=== PATIENT | male | born 1950 | race Caucasian/White ===

== ENCOUNTER → 2017-06-08 09:10 | Outpatient (CLI) | payer MEDICARE, OTHER, SELFPAY ==
[2017-06-08 10:54] LABS: Microalbumin,Random Urine 8.3 mg/L (NO RANGE EST.); Microalbumin:Creatinine Ratio 5.9 mg/g CRE (<30 mg/g CRE)
[2017-06-08 11:03] LABS: Anion Gap 5 (5-15); BUN 20 mg/dL (7-18); BUN/Creat Ratio 14.6 RATIO (10-20); Calcium,Total 8.9 mg/dL (8.5-10.1); Chloride 108 mmol/L (98-107); Cholesterol 181 mg/dL (200); Creatinine, Serum 1.37 mg/dL (0.70-1.30); EST Glomerular Filtration Rate 55 mL/min (>60); Est Glom Filt Rate - Afr Amer 67 mL/min (>60); Glucose 100 mg/dL (74-106); High Density Lipoprotein 51 mg/dL; PSA,Total- Diagnostic 2.48 ng/mL (0.0-4.0); Potassium 5.2 mmol/L (3.5-5.1); Sodium Level 143 mmol/L (136-145); Triglycerides 104 mg/dL; Very Low Density Lipoprotein 21 mg/dL (5-40)
[2017-06-08 11:33] LABS: Vitamin D,25 Hydroxy 35.7 ng/mL (29.95-100.01)
== END ==
PROVIDERS: Family Provider Family Medicine; PCP Family Medicine; Visit Provider Family Medicine
DX: I10 Essential (primary) hypertension (principal); E55.9 Vitamin D deficiency, unspecified; N39.43 Post-void dribbling; R79.89 Other specified abnormal findings of blood chemistry
CPT/HCPCS: 36415; 80048; 80061; 82043; 82306; 82570; 84153

== ENCOUNTER → 2017-09-16 08:07 | Outpatient (CLI) | payer MEDICARE, OTHER, SELFPAY ==
[2017-09-16 10:40] LABS: Anion Gap 7 (5-15); BUN 21 mg/dL (7-18); BUN/Creat Ratio 17.2 RATIO (10-20); Calcium,Total 8.8 mg/dL (8.5-10.1); Chloride 108 mmol/L (98-107); Creatinine, Serum 1.22 mg/dL (0.70-1.30); EST Glomerular Filtration Rate 63 mL/min (>60); Est Glom Filt Rate - Afr Amer 76 mL/min (>60); Glucose 93 mg/dL (74-106); Sodium Level 143 mmol/L (136-145)
== END ==
PROVIDERS: Family Provider Family Medicine; PCP Family Medicine; Visit Provider Family Medicine
DX: I10 Essential (primary) hypertension (principal)
CPT/HCPCS: 36415; 80048

== ENCOUNTER → 2018-05-28 10:57 | Outpatient (CLI) | payer MEDICARE, OTHER, SELFPAY ==
--- NOTE | 2018-05-28 11:18 | EKG12_ITS ---
Test Reason : PREOP Blood Pressure : / mmHG Vent. Rate : 057 BPM Atrial Rate : 057 BPM P-R Int : 144 ms QRS Dur : 090 ms QT Int : 400 ms P-R-T Axes : 056 007 -01 degrees QTc Int : 389 ms Sinus bradycardia Nonspecific T wave abnormality Abnormal ECG Confirmed by JUAN WHITE, ANNA ([id number]), editorial project manager SUNIL OATES ([id number]) on 05/31/2018 2:09:05 PM Referred By: Don Amin Confirmed By:ANNA MARTINEZ MD
[2018-05-28 11:43] LABS: Hematocrit 46.1 % (40-54); Hemoglobin 15.2 g/dl (13.0-16.5); Mean Corpuscular Hgb 28.7 pg (27.0-32.0); Mean Platelet Vol. 10.5 fl (6.2-12.0); Platelet Count 282 K/mm3 (150-450); RBC Distribution Width CV 13.8 % (11.6-14.6); White Blood Count 6.5 K/mm3 (4.4-11.0)
[2018-05-28 11:57] LABS: Scan Indicated on CBC? Y/N NO
[2018-05-28 12:14] LABS: Anion Gap 4 (5-15); BUN 22 mg/dL (7-18); BUN/Creat Ratio 15.2 RATIO (10-20); Chloride 108 mmol/L (98-107); Creatinine, Serum 1.45 mg/dL (0.70-1.30); EST Glomerular Filtration Rate 51 mL/min (>60); Est Glom Filt Rate - Afr Amer 62 mL/min (>60); Glucose 91 mg/dL (74-106); Potassium 3.8 mmol/L (3.5-5.1); Sodium Level 144 mmol/L (136-145)
== END ==
PROVIDERS: Family Provider Family Medicine; PCP Family Medicine; Referring Provider Physician Assistant Surgical; Visit Provider Physician Assistant Surgical
DX: Z01.818 Encounter for other preprocedural examination (principal); Z01.810 Encounter for preprocedural cardiovascular examination
CPT/HCPCS: 36415; 80048; 85027; 93005

== ENCOUNTER → 2020-07-17 08:00 | Outpatient (CLI) | payer MEDICARE, OTHER, SELFPAY ==
[2020-07-17 10:28] LABS: Absolute Lymphocyte Count 1.16 X10^3/uL (0.83-4.51); Absolute Neutrophil Count 3.3 X10^3/uL (2.0-7.7); Basophil# 0.04 X10^3/uL; Basophil% 0.8 % (0-1); Eosinophil# 0.12 X10^3/uL; Eosinophils% 2.3 % (0-5); Hematocrit 44.9 % (40-54); Hemoglobin 14.5 g/dL (13.0-16.5); Lymphocyte # 1.16 X10^3/ul (0.83-4.51); Lymphocyte % 21.8 % (19-41); Mean Corp Hgb Conc 32.3 g/dL (32-36); Mean Corpuscular Hgb 28.4 pg (27.0-32.0); Mean Corpuscular Volume 87.9 fL (80-94); Mean Platelet Vol. 10.1 fl (6.2-12.0); Monocyte# 0.66 X10^3/uL; Monocyte% 12.4 % (0-10); Neutrophil # 3.32 X10^3/uL (2.7-7.7); Neutrophil % 62.3 % (47-70); Platelet Count 281 K/mm3 (150-450); RBC Distribution Width CV 14.5 % (11.6-14.6); Red Blood Count 5.11 M/mm3 (4.6-6.2); White Blood Count 5.3 K/mm3 (4.4-11.0)
[2020-07-17 10:29] LABS: NRBC Flagged by Analyzer 0 % (0-5)
[2020-07-17 10:37] LABS: Microalbumin:Creatinine Ratio 6.2 mg/g CRE (<30 mg/g CRE)
[2020-07-17 11:01] LABS: ALB/GLOB Ratio 1.3 RATIO (0.9-2.4); AST(SGOT) 16 U/L (15-37); Alanine Aminotransfer ALT/SGPT 30 U/L (16-61); Albumin, Serum 3.7 g/dL (3.2-5.0); Alkaline Phosphatase 68 U/L (45-117); Anion Gap 5 (5-15); BUN 25 mg/dL (7-18); BUN/Creat Ratio 19.4 RATIO (10-20); Calcium,Total 8.5 mg/dL (8.5-10.1); Chloride 110 mmol/L (98-107); Creatinine, Serum 1.29 mg/dL (0.70-1.30); EST Glomerular Filtration Rate 58 mL/min (>60); Est Glom Filt Rate - Afr Amer 71 mL/min (>60); Globulin 2.9 g/dL (2.2-4.2); Glucose 90 mg/dL (74-106); Potassium 3.7 mmol/L (3.5-5.1); Protein, Total 6.6 g/dL (6.4-8.2); Sodium Level 139 mmol/L (136-145)
== END ==
PROVIDERS: PCP Family Medicine; Referring Provider Family Medicine; Visit Provider Family Medicine
DX: I10 Essential (primary) hypertension (principal); M19.90 Unspecified osteoarthritis, unspecified site
CPT/HCPCS: 36415; 80053; 82043; 82570; 85025

== ENCOUNTER → 2021-01-15 09:12 | Outpatient (CLI) | payer MEDICARE, OTHER, SELFPAY ==
[2021-01-15 10:14] LABS: Albumin, Serum 3.7 g/dL (3.2-5.0); BUN 17 mg/dL (7-18); BUN/Creat Ratio 12.9 RATIO (10-20); Calcium,Total 9.2 mg/dL (8.5-10.1); Chloride 107 mmol/L (98-107); Cholesterol 153 mg/dL (200); Creatinine, Serum 1.32 mg/dL (0.70-1.30); EST Glomerular Filtration Rate 57 mL/min (>60); Est Glom Filt Rate - Afr Amer 69 mL/min (>60); Glucose 103 mg/dL (74-106); High Density Lipoprotein 68 mg/dL; Phosphorus 2.6 mg/dL (2.5-4.9); Potassium 4.3 mmol/L (3.5-5.1); Sodium Level 142 mmol/L (136-145); Triglycerides 104 mg/dL; Very Low Density Lipoprotein 21 mg/dL (5-40)
== END ==
PROVIDERS: PCP Family Medicine; Referring Provider Family Medicine; Visit Provider Family Medicine
DX: I12.9 Hypertensive chronic kidney disease with stage 1 through stage 4 chronic kidney disease, or unspecified chronic kidney disease (principal); N18.2 Chronic kidney disease, stage 2 (mild)
CPT/HCPCS: 36415; 80061; 80069

== ENCOUNTER → 2021-08-09 | Outpatient (CLI) | payer MEDICARE, OTHER, SELFPAY ==
[2021-08-09 17:50] LABS: Albumin, Serum 3.9 g/dL (3.2-5.0); BUN 24 mg/dL (7-18); BUN/Creat Ratio 21.2 RATIO (10-20); Calcium,Total 9.4 mg/dL (8.5-10.1); Chloride 107 mmol/L (98-107); Creatinine, Serum 1.13 mg/dL (0.70-1.30); EST Glomerular Filtration Rate 68 mL/min (>60); Est Glom Filt Rate - Afr Amer 82 mL/min (>60); Glucose 92 mg/dL (74-106); Magnesium 2.4 mg/dL (1.6-2.6); Phosphorus 3.4 mg/dL (2.5-4.9); Potassium 3.9 mmol/L (3.5-5.1); Sodium Level 140 mmol/L (136-145)
[2021-08-12 08:27] LABS: PTHIN 41.5 pg/mL (18.4-80.1)
== END | disposition home or self-care (01) ==
LOC: MFPLAB 14:57
PROVIDERS: PCP Family Medicine; Referring Provider Family Medicine; Visit Provider Family Medicine
DX: N18.2 Chronic kidney disease, stage 2 (mild) (principal)
CPT/HCPCS: 36415; 80069; 83735; 83970

== ENCOUNTER → 2021-09-10 | Outpatient (CLI) | payer MEDICARE, OTHER, SELFPAY ==
[2021-09-10 15:17] LABS: Absolute Lymphocyte Count 1.54 X10^3/uL (0.83-4.51); Absolute Neutrophil Count 7.1 X10^3/uL (2.0-7.7); Basophil# 0.04 X10^3/uL; Basophil% 0.4 % (0-1); Eosinophil# 0.04 X10^3/uL; Eosinophils% 0.4 % (0-5); Hematocrit 44.3 % (40-54); Hemoglobin 14.4 g/dL (13.0-16.5); Lymphocyte # 1.54 X10^3/ul (0.83-4.51); Lymphocyte % 15.7 % (19-41); Mean Corp Hgb Conc 32.5 g/dL (32-36); Mean Corpuscular Hgb 28.5 pg (27.0-32.0); Mean Corpuscular Volume 87.5 fL (80-94); Mean Platelet Vol. 10.9 fl (6.2-12.0); Monocyte# 1.01 X10^3/uL; Monocyte% 10.3 % (0-10); NRBC Flagged by Analyzer 0 % (0-5); Neutrophil # 7.11 X10^3/uL (2.7-7.7); Neutrophil % 72.8 % (47-70); Platelet Count 274 K/mm3 (150-450); RBC Distribution Width CV 14.4 % (11.6-14.6); RBC Distribution Width SD 46.2 fl (35.1-43.9); Red Blood Count 5.06 M/mm3 (4.6-6.2); White Blood Count 9.8 K/mm3 (4.4-11.0)
[2021-09-10 16:06] LABS: ALB/GLOB Ratio 1.2 RATIO (0.9-2.4); AST(SGOT) 13 U/L (15-37); Alanine Aminotransfer ALT/SGPT 23 U/L (16-61); Albumin, Serum 3.8 g/dL (3.2-5.0); Alkaline Phosphatase 63 U/L (45-117); Anion Gap 5 (5-15); BUN 19 mg/dL (7-18); BUN/Creat Ratio 15.1 RATIO (10-20); Calcium,Total 9.1 mg/dL (8.5-10.1); Chloride 107 mmol/L (98-107); Creatinine, Serum 1.26 mg/dL (0.70-1.30); EST Glomerular Filtration Rate 60 mL/min (>60); Est Glom Filt Rate - Afr Amer 72 mL/min (>60); Globulin 3.3 g/dL (2.2-4.2); Glucose 93 mg/dL (74-106); Lipase 103 U/L (73-393); Potassium 4.4 mmol/L (3.5-5.1); Protein, Total 7.1 g/dL (6.4-8.2); Sodium Level 138 mmol/L (136-145)
== END | disposition home or self-care (01) ==
LOC: MFPLAB 12:03
PROVIDERS: PCP Family Medicine; Referring Provider Family Medicine; Visit Provider Family Medicine
DX: K21.9 Gastro-esophageal reflux disease without esophagitis (principal)
CPT/HCPCS: 36415; 80053; 83690; 85025; 86140

== ENCOUNTER → 2022-05-26 | Outpatient (CLI) | payer MEDICARE, OTHER, SELFPAY ==
[2022-05-26 13:09] LABS: ALB/GLOB Ratio 1.1 RATIO (0.9-2.4); AST(SGOT) 16 U/L (15-37); Alanine Aminotransfer ALT/SGPT 26 U/L (16-61); Albumin, Serum 3.9 g/dL (3.2-5.0); Alkaline Phosphatase 70 U/L (45-117); Anion Gap 4 (5-15); BUN 22 mg/dL (7-18); BUN/Creat Ratio 20.4 RATIO (10-20); Calcium,Total 8.9 mg/dL (8.5-10.1); Chloride 108 mmol/L (98-107); Creatinine, Serum 1.08 mg/dL (0.70-1.30); EST Glomerular Filtration Rate 71 mL/min (>60); Est Glom Filt Rate - Afr Amer 86 mL/min (>60); Globulin 3.4 g/dL (2.2-4.2); Glucose 86 mg/dL (74-106); Magnesium 2.2 mg/dL (1.6-2.6); PSA,Total - Annual Screen 5.56 ng/mL (0.00-4.00); Phosphorus 2.3 mg/dL (2.5-4.9); Protein, Total 7.3 g/dL (6.4-8.2); Sodium Level 139 mmol/L (136-145)
[2022-05-26 13:10] LABS: Microalbumin,Random Urine 11.6 mg/L (NO RANGE EST.); Microalbumin:Creatinine Ratio 9.7 mg/g CRE (<30 mg/g CRE)
== END | disposition home or self-care (01) ==
LOC: MFPLAB 10:51
PROVIDERS: PCP Family Medicine; Visit Provider Family Medicine
DX: I12.9 Hypertensive chronic kidney disease with stage 1 through stage 4 chronic kidney disease, or unspecified chronic kidney disease (principal); N18.2 Chronic kidney disease, stage 2 (mild); Z12.5 Encounter for screening for malignant neoplasm of prostate
CPT/HCPCS: 80053; 82043; 82570; 83735; 84100; 84153; G0103

== ENCOUNTER → 2022-06-03 | Outpatient (CLI) | payer MEDICARE, OTHER, SELFPAY ==
[2022-06-03 16:29] LABS: Absolute Lymphocyte Count 1.74 X10^3/uL (0.83-4.51); Absolute Neutrophil Count 5.9 X10^3/uL (2.0-7.7); Basophil# 0.07 X10^3/uL; Basophil% 0.8 % (0-1); Eosinophil# 0.08 X10^3/uL; Eosinophils% 0.9 % (0-5); Hematocrit 43.5 % (40-54); Hemoglobin 14.2 g/dL (13.0-16.5); Lymphocyte # 1.74 X10^3/ul (0.83-4.51); Lymphocyte % 20.1 % (19-41); Mean Corp Hgb Conc 32.6 g/dL (32-36); Mean Corpuscular Hgb 28.7 pg (27.0-32.0); Mean Corpuscular Volume 87.9 fL (80-94); Mean Platelet Vol. 9.9 fl (6.2-12.0); Monocyte# 0.86 X10^3/uL; Monocyte% 9.9 % (0-10); NRBC Flagged by Analyzer 0 % (0-5); Neutrophil % 68.1 % (47-70); Platelet Count 310 K/mm3 (150-450); RBC Distribution Width CV 13.9 % (11.6-14.6); RBC Distribution Width SD 44.9 fl (35.1-43.9); Red Blood Count 4.95 M/mm3 (4.6-6.2); White Blood Count 8.7 K/mm3 (4.4-11.0)
== END | disposition home or self-care (01) ==
LOC: LAB 15:55
PROVIDERS: PCP Family Medicine; Visit Provider Physician Assistant Surgical
DX: Z01.812 Encounter for preprocedural laboratory examination (principal); K21.9 Gastro-esophageal reflux disease without esophagitis
CPT/HCPCS: 36415; 85025

== ENCOUNTER → 2022-06-23 | Outpatient (CLI) | payer MEDICARE, OTHER, SELFPAY ==
[2022-06-23 11:04] LABS: Hematocrit 39.1 % (40-54); Hemoglobin 12.3 g/dL (13.0-16.5); Mean Corp Hgb Conc 31.5 g/dL (32-36); Mean Corpuscular Hgb 27.9 pg (27.0-32.0); Mean Corpuscular Volume 88.7 fL (80-94); Mean Platelet Vol. 9.8 fl (6.2-12.0); Platelet Count 381 K/mm3 (150-450); RBC Distribution Width SD 45.5 fl (35.1-43.9); Red Blood Count 4.41 M/mm3 (4.6-6.2); White Blood Count 9.3 K/mm3 (4.4-11.0)
== END | disposition home or self-care (01) ==
LOC: LAB 10:06
PROVIDERS: PCP Family Medicine; Referring Provider Physician Assistant Surgical; Visit Provider Physician Assistant Surgical
DX: D72.829 Elevated white blood cell count, unspecified (principal); E89.89 Other postprocedural endocrine and metabolic complications and disorders
CPT/HCPCS: 36415; 85027

== ENCOUNTER → 2023-01-13 | Outpatient (CLI) | payer MEDICARE, OTHER, SELFPAY ==
[2023-01-13 16:03] LABS: PSA,Total- Diagnostic 1.79 ng/mL (0.0-4.0)
== END | disposition home or self-care (01) ==
LOC: LAB 13:14
PROVIDERS: PCP Family Medicine; Referring Provider Urology; Visit Provider Urology
DX: R97.20 Elevated prostate specific antigen [PSA] (principal)
CPT/HCPCS: 36415; 84153

== ENCOUNTER → 2023-01-15 | Outpatient (CLI) | payer MEDICARE, OTHER, SELFPAY ==
[2023-01-15 17:43] LABS: Absolute Lymphocyte Count 1.49 X10^3/uL (0.83-4.51); Absolute Neutrophil Count 4.8 X10^3/uL (2.0-7.7); Basophil# 0.06 X10^3/uL; Basophil% 0.8 % (0-1); Eosinophil# 0.06 X10^3/uL; Eosinophils% 0.8 % (0-5); Hemoglobin 13.5 g/dL (13.0-16.5); Lymphocyte # 1.49 X10^3/ul (0.83-4.51); Mean Corp Hgb Conc 32.1 g/dL (32-36); Mean Corpuscular Hgb 28.5 pg (27.0-32.0); Mean Corpuscular Volume 88.8 fL (80-94); Mean Platelet Vol. 10.2 fl (6.2-12.0); Monocyte# 0.69 X10^3/uL; Monocyte% 9.7 % (0-10); NRBC Flagged by Analyzer 0 % (0-5); Neutrophil # 4.76 X10^3/uL (2.7-7.7); Neutrophil % 67.3 % (47-70); Platelet Count 279 K/mm3 (150-450); RBC Distribution Width CV 14.9 % (11.6-14.6); RBC Distribution Width SD 48.7 fl (35.1-43.9); Red Blood Count 4.73 M/mm3 (4.6-6.2); White Blood Count 7.1 K/mm3 (4.4-11.0)
[2023-01-15 18:24] LABS: Vitamin D,25 Hydroxy 51.6 ng/mL
[2023-01-15 18:25] LABS: ALB/GLOB Ratio 1.2 RATIO (0.9-2.4); AST(SGOT) 13 U/L (15-37); Alanine Aminotransfer ALT/SGPT 23 U/L (16-61); Albumin, Serum 3.5 g/dL (3.2-5.0); Alkaline Phosphatase 73 U/L (45-117); Anion Gap 7 (5-15); BUN 15 mg/dL (7-18); BUN/Creat Ratio 13.4 RATIO (10-20); Calcium,Total 8.9 mg/dL (8.5-10.1); Chloride 109 mmol/L (98-107); Creatinine, Serum 1.12 mg/dL (0.70-1.30); EST Glomerular Filtration Rate 68 mL/min (>60); Est Glom Filt Rate - Afr Amer 83 mL/min (>60); Globulin 2.9 g/dL (2.2-4.2); Glucose 114 mg/dL (74-106); PSA,Total- Diagnostic 1.69 ng/mL (0.0-4.0); Potassium 3.5 mmol/L (3.5-5.1); Protein, Total 6.4 g/dL (6.4-8.2); Sodium Level 140 mmol/L (136-145)
== END | disposition home or self-care (01) ==
LOC: MFPLAB 15:27
PROVIDERS: PCP Family Medicine; Visit Provider Family Medicine
DX: I12.9 Hypertensive chronic kidney disease with stage 1 through stage 4 chronic kidney disease, or unspecified chronic kidney disease (principal); N18.2 Chronic kidney disease, stage 2 (mild); E55.9 Vitamin D deficiency, unspecified; D72.829 Elevated white blood cell count, unspecified; N40.0 Benign prostatic hyperplasia without lower urinary tract symptoms
CPT/HCPCS: 36415; 80053; 82306; 84153; 85025

== ENCOUNTER → 2023-08-31 | Outpatient (CLI) | payer MEDICARE, OTHER, SELFPAY ==
[2023-08-31 12:19] LABS: Absolute Neutrophil Count 3.2 X10^3/uL (2.0-7.7); Basophil# 0.04 X10^3/uL; Basophil% 0.7 % (0-1); Eosinophil# 0.11 X10^3/uL; Eosinophils% 1.9 % (0-5); Hematocrit 43.6 % (40-54); Hemoglobin 13.8 g/dL (13.0-16.5); Lymphocyte % 24.1 % (19-41); Mean Corp Hgb Conc 31.7 g/dL (32-36); Mean Corpuscular Hgb 27.5 pg (27.0-32.0); Mean Corpuscular Volume 86.9 fL (80-94); Mean Platelet Vol. 10.5 fl (6.2-12.0); Monocyte% 18.9 % (0-10); NRBC Flagged by Analyzer 0 % (0-5); Neutrophil # 3.15 X10^3/uL (2.7-7.7); Neutrophil % 54.1 % (47-70); Platelet Count 251 K/mm3 (150-450); RBC Distribution Width CV 14.6 % (11.6-14.6); RBC Distribution Width SD 47.4 fl (35.1-43.9); Red Blood Count 5.02 M/mm3 (4.6-6.2); White Blood Count 5.8 K/mm3 (4.4-11.0)
[2023-08-31 12:53] LABS: Microalbumin,Random Urine 21.1 mg/L (NO RANGE EST.); Microalbumin:Creatinine Ratio 7.2 mg/g CRE (<30 mg/g CRE)
[2023-08-31 12:54] LABS: ALB/GLOB Ratio 1.2 RATIO (0.9-2.4); AST(SGOT) 23 U/L (15-37); Alanine Aminotransfer ALT/SGPT 25 U/L (16-61); Albumin, Serum 3.6 g/dL (3.2-5.0); Alkaline Phosphatase 68 U/L (45-117); Anion Gap 9 (5-15); BUN 20 mg/dL (7-18); BUN/Creat Ratio 17.5 RATIO (10-20); Calcium,Total 8.6 mg/dL (8.5-10.1); Chloride 109 mmol/L (98-107); Cholesterol 139 mg/dL (200); Creatinine, Serum 1.14 mg/dL (0.70-1.30); EST Glomerular Filtration Rate 67 mL/min (>60); Est Glom Filt Rate - Afr Amer 81 mL/min (>60); Globulin 3.1 g/dL (2.2-4.2); Glucose 94 mg/dL (74-106); High Density Lipoprotein 61 mg/dL; PSA,Total - Annual Screen 2.11 ng/mL (0.00-4.00); Protein, Total 6.7 g/dL (6.4-8.2); Sodium Level 140 mmol/L (136-145); Triglycerides 131 mg/dL; Very Low Density Lipoprotein 26 mg/dL (5-40)
[2023-08-31 17:02] LABS: Vitamin D,25 Hydroxy 32.5 ng/mL
== END | disposition home or self-care (01) ==
LOC: MFPLAB 10:34
PROVIDERS: PCP Family Medicine; Visit Provider Family Medicine
DX: I12.9 Hypertensive chronic kidney disease with stage 1 through stage 4 chronic kidney disease, or unspecified chronic kidney disease (principal); N18.2 Chronic kidney disease, stage 2 (mild); Z12.11 Encounter for screening for malignant neoplasm of colon; N40.0 Benign prostatic hyperplasia without lower urinary tract symptoms; E55.9 Vitamin D deficiency, unspecified; N18.9 Chronic kidney disease, unspecified; Z12.5 Encounter for screening for malignant neoplasm of prostate
CPT/HCPCS: 36415; 80053; 80061; 82043; 82306; 82570; 84153; 85025; G0103

== ENCOUNTER → 2024-01-05 | Outpatient (CLI) | payer MEDICARE, OTHER, SELFPAY ==
--- OUTSIDE RECORDS SUMMARY | 2024-01-05 08:31 | XMS RPT_ITS | CCD ---
Author Organization [facility] Care Team Providers Care Transport Specialist Name Role Phone BRIELLE WHITE, SOURAV Gautam Primary Care Physician HAJA WHITE, DR ERVIN Gautam Attending Ruth Hollingsworth MD, SOURAV Gautam Primary Care Anthony SMYTH MD, DR ERVIN Gautam Attending Ruth Hollingsworth MD, SOURAV Gautam Primary Care Unavailable HAJA WHITE, DR ERVIN Gautam Attending Ruth Hollingsworth MD, SOURAV Gautam Primary Care Anthony SMYTH MD, DR ERVIN Gautam Admitting Unavailab gil [employer], ZEE Rizzo Consulting Aisha SMYTH MD, DR ERVIN Gautam Referring Unavailab Medications Current Medications Medication Drug Class(es) Dates Sig (Normalized) Sig (Original) acetaminophen 500 mg oral capsule (1 source) Start: 06-18-2022 End: 07-02-2022 take 1 capsule by mouth once daily acetaminophen 500 mg oral capsule Dose : 1,000 mg = 2 cap(s), Oral, TID, PRN PRN for pain, not to exceed 3000 mg/day, # 100 cap(s), 0 Refill(s), 07/02/22 7:39:00 EDT, Pharmacy: [facility] #[id number], 170.2, cm, 06/17/22 14:14:00 EDT, Height Start Date: 06/18/22 Stop Date: 07/02/22 Status: Ordered amLODIPine 5 mg oral tablet (3 sources) Dihydropyridine Calcium Channel Daryl Start: 06-02-2022 amLODIPine 5 mg oral tablet Dose : 5 mg = 1 tab(s), Oral, qHS, # 90 tab(s), 0 Refill(s) Start Date: 06/02/22 Status: Ordered aspirin 81 mg oral tablet (3 sources) Platelet Aggregation Inhibitor, Nonsteroidal Anti-inflammatory Drug Start: 06-18-2022 take 1 tablet by mouth twice daily at mealtime aspirin Dose : 81 mg = 1 tab(s), Oral, BIDM, Take 81 mg aspirin twice daily with food for 4 weeks postoperatively for DVT prophylaxis., 0 Refill(s) Start Date: 06/18/22 Status: Ordered Start: 06-02-2022 aspirin 81 mg oral delayed release tablet Dose : 81 mg = 1 tab(s), Oral, Daily, 0 Refill(s) Start Date: 06/02/22 Status: Ordered bimatoprost 0.1 mg/ml ophthalmic solution (3 sources) Prostaglandin Analog Start: 06-02-2022 Lumigan 0.01% ophthalmic solution Dose = 1 drop(s), Eye, right, qPM, # 2.5 mL, 0 Refill(s) Start Date: 06/02/22 Status: Ordered Biotin (3 sources) Start: 06-02-2022 Biotin 5000 mcg oral capsule Dose : 5,000 mcg = 1 cap(s), Oral, Daily, 0 Refill(s) Start Date: 06/02/22 Status: Ordered docusate sodium 50 mg / sennosides, fpc 8.6 mg oral tablet (1 source) Start: 06-18-2022 End: 06-21-2022 take 1 tablet by mouth twice daily Senokot S 50 mg-8.6 mg oral tablet Dose = 2 tab(s), Oral, BID, Take until first bowel movement, then as needed, X 3 day(s), # 12 tab(s), 0 Refill(s), Pharmacy: [facility] #[id number], 170.2, cm, 06/17/22 14:14:00 EDT, Height Start Date: 06/18/22 Stop Date: 06/21/22 Status: Ordered doxycycline hyclate 20 mg oral tablet (3 sources) Tetracycline-class Drug Start: 06-02-2022 doxycycline 20 mg oral tablet Dose : 20 mg = 1 tab(s), Oral, q12h, # 180 tab(s), 0 Refill(s) Start Date: 06/02/22 Status: Ordered Elderberry preparation (3 sources) Start: 06-02-2022 take 1 capsule by mouth once daily elderberry 350 mg oral capsule 350 mg Dose = 1 cap(s), Oral, qDay, # 60 cap(s), 0 Refill(s) Start Date: 06/02/22 Status: Ordered famotidine 20 mg oral tablet (3 sources) Histamine-2 Receptor Antagonist Start: 06-02-2022 famotidine 20 mg oral tablet Dose : 20 mg = 1 tab(s), Oral, BID, # 60 tab(s), 0 Refill(s) Start Date: 06/02/22 Status: Ordered inulin 1500 mg chewable tablet (3 sources) Start: 06-02-2022 Fiber Choice 1.5 g oral tablet, chewable Dose : 1.5 gram(s) = 1 tab(s), Chewed, Daily, # 90 tab(s), 0 Refill(s) Start Date: 06/02/22 Status: Ordered lisinopril 20 mg oral tablet (3 sources) Angiotensin Converting Enzyme Inhibitor Start: 06-02-2022 lisinopril 20 mg oral tablet Dose : 20 mg = 1 tab(s), Oral, BID, 0 Refill(s) Start Date: 06/02/22 Status: Ordered magnesium oxide 400 mg oral tablet (3 sources) Start: 06-02-2022 magnesium oxide 400 mg oral tablet Dose : 400 mg = 1 tab(s), Oral, qDay, 0 Refill(s) Start Date: 06/02/22 Status: Ordered melatonin 3 mg oral tablet (3 sources) Start: 06-02-2022 Melatonin 3 mg oral tablet Dose : 3 mg = 1 tab(s), Oral, qHS, PRN for insomnia, # 90 tab(s), 0 Refill(s) Start Date: 06/02/22 Status: Ordered oxyCODONE hydrochloride 5 mg oral tablet (1 source) Opioid Agonist Start: 06-18-2022 End: 06-25-2022 take 1-2 tablets by mouth every four hours as needed for pain oxyCODONE 5 mg oral tablet ( IMMEDIATE release ) See Instructions, PRN PRN as needed for pain, 1-2 tab(s) Oral q4h, # 42 tab(s), 0 Refill(s), 06/25/22 7:40:00 EDT, Pharmacy: [facility] #[id number], Status post total right knee replacement, 170.2, cm, 06/17/22 14:14:00 EDT, Height, 80.5 Start Date: 06/18/22 Stop Date: 06/25/22 Status: Ordered pantoprazole 40 mg delayed release oral tablet (3 sources) Proton Pump Inhibitor Start: 06-02-2022 pantoprazole 40 mg oral enteric coated tablet Dose : 40 mg = 1 tab(s), Oral, BIDAC, 0 Refill(s) Start Date: 06/02/22 Status: Ordered rosuvastatin calcium 10 mg oral tablet (3 sources) HMG-CoA Reductase Inhibitor Start: 06-02-2022 rosuvastatin 10 mg oral tablet Dose : 10 mg = 1 tab(s), Oral, qDay, # 30 tab(s), 0 Refill(s) Start Date: 06/02/22 Status: Ordered tamsulosin hydrochloride 0.4 mg oral capsule (3 sources) alpha-Adrenergic Daryl Start: 06-02-2022 tamsulosin 0.4 mg oral capsule Dose : 0.4 mg = 1 cap(s), Oral, qDayPC, 0 Refill(s) Start Date: 06/02/22 Status: Ordered Vitamin D3 25 mcg (1000 intl units) oral tablet (3 sources) Start: 06-02-2022 Vitamin D3 25 mcg (1000 intl units) oral tablet Dose : 25 mcg = 1 tab(s), Oral, qDay, # 30 tab(s), 0 Refill(s) Start Date: 06/02/22 Status: Ordered vitamin e 180 mg oral capsule (3 sources) Start: 06-02-2022 vitamin E 180 mg oral capsule Dose : 180 mg = 1 cap(s), Oral, qDay, # 100 cap(s), 0 Refill(s) Start Date: 06/02/22 Status: Ordered zinc acetate 25 mg oral capsule (3 sources) Start: 06-02-2022 zinc (as acetate) 25 mg oral capsule Dose : 25 mg = 1 cap(s), Oral, TID, # 250 cap(s), 0 Refill(s) Start Date: 06/02/22 Status: Ordered Problems Problem Classification Problem Date Documented Date Episodic/Chronic Diseases of white blood cells (2 sources) Leukocytosis; Translations: [Elevated white blood cell count, unspecified] Onset: 06-18-2022 Chronic Esophageal disorders (1 source) Gastroesophageal reflux disease without esophagitis; Translations: [Gastro-esophageal reflux disease without esophagitis] Onset: 06-17-2022 Chronic Essential hypertension (1 source) Essential hypertension; Translations: [Essential (primary) hypertension] Onset: 06-17-2022 Chronic Osteoarthritis (1 source) Osteoarthritis; Translations: [Unspecified osteoarthritis, unspecified site] Onset: 06-17-2022 Chronic Other connective tissue disease (1 source) Artificial knee joint present; Translations: [Presence of right artificial knee joint] Onset: 06-18-2022 Chronic Results Test Name Value Interpretation Reference Range Facility .Auto Diffon 06-18-2022 Basophil, Absolute 0.0 10 3/mcL Normal 0.0-0.2 [facility] ([place]) Comment on above: Performed By: #### A KATLYN, MORPH, CBC, GFR, ADIFF, BMP #### [address] [address] Basophils/100 WBC (Bld) 0.1 % Normal 0.0-2.5 [facility] ([place]) Comment on above: Performed By: #### A KATLYN, MORPH, CBC, GFR, ADIFF, BMP #### [address] [address] Eosinophil, Absolute 0.0 10 3/mcL Normal 0.0-0.4 [facility] ([place]) Comment on above: Performed By: #### A KATLYN, MORPH, CBC, GFR, ADIFF, BMP #### [address] [address] Eosinophils/100 WBC (Bld) 0.0 % Normal 0.0-7.0 [facility] ([place]) Comment on above: Performed By: #### A KATLYN, MORPH, CBC, GFR, ADIFF, BMP #### [address] [address] Lymphocyte, Absolute 0.9 10 3/mcL Normal 0.8-3.9 [facility] ([place]) Comment on above: Performed By: #### A KATLYN, MORPH, CBC, GFR, ADIFF, BMP #### [address] [address] Lymphocytes/100 WBC (Bld) 4.1 % Low 10.0-50.0 [facility] ([place]) Comment on above: Performed By: #### A KATLYN, MORPH, CBC, GFR, ADIFF, BMP #### [address] [address] Monocyte, Absolute 1.5 10 3/mcL High 0.2-1.0 [facility] ([place]) Comment on above: Performed By: #### A KATLYN, MORPH, CBC, GFR, ADIFF, BMP #### [address] [address] Monocytes/100 WBC (Bld) 6.7 % Normal 1.7-13.0 [facility] ([place]) Comment on above: Performed By: #### A KATLYN, MORPH, CBC, GFR, ADIFF, BMP #### [address] [address] Neutrophils/100 WBC (Bld) 89.1 % High 37.0-80.0 [facility] ([place]) Comment on above: Performed By: #### A KATLYN, MORPH, CBC, GFR, ADIFF, BMP #### [address] [address] .GFRon 06-18-2022 GFR Non- 56 ml/min/1.73sqm Normal [facility] ([place]) Comment on above: Result Comment: GFR Population mean for , Non- Americans Ages 20-29 = 116 mL/min/1.73 sq.m. Ages 30-39 = 107 mL/min/1.73 sq.m. Ages 40-49 = 99 mL/min/1.73 sq.m. Ages 50-59 = 93 mL/min/1.73 sq.m. Ages 60-69 = 85 mL/min/1.73 sq.m. Ages 70+ = 75 mL/min/1.73 sq.m. Chronic Kidney Disease: Less than 60 mL/min/1.73 square meters End Stage Renal Disease: Less than 15 mL/min/1.73 square meters Performed By: #### A KATLYN, MORPH, CBC, GFR, ADIFF, BMP #### [address] [address] GFR 68 ml/min/1.73sqm Normal [facility] ([place]) Comment on above: Result Comment: GFR Population mean for , Non- Americans Ages 20-29 = 116 mL/min/1.73 sq.m. Ages 30-39 = 107 mL/min/1.73 sq.m. Ages 40-49 = 99 mL/min/1.73 sq.m. Ages 50-59 = 93 mL/min/1.73 sq.m. Ages 60-69 = 85 mL/min/1.73 sq.m. Ages 70+ = 75 mL/min/1.73 sq.m. Chronic Kidney Disease: Less than 60 mL/min/1.73 square meters End Stage Renal Disease: Less than 15 mL/min/1.73 square meters Performed By: #### A KATLYN, MORPH, CBC, GFR, ADIFF, BMP #### [address] [address] .Morphon 06-18-2022 Platelet Estimate Normal Normal [facility]) Comment on above: Performed By: #### A KATLYN, MORPH, CBC, GFR, ADIFF, BMP #### [address] [address] .NEUABSon 06-18-2022 Neutrophil, Absolute 19.7 10 3/mcL High 2.9-6.2 A [facility] ([place]) Comment on above: Performed By: #### A KATLYN, MORPH, CBC, GFR, ADIFF, BMP #### [address] [address] BMPon 06-18-2022 BUN/Creatinine Ratio 17 ratio Normal 7-27 [facility] ([place]) Comment on above: Performed By: #### A KATLYN, MORPH, CBC, GFR, ADIFF, BMP #### [address] [address] Calcium [Mass/Vol] 9.0 mg/dL Normal 8.4-10.2 [facility] ([place]) Comment on above: Performed By: #### A KATLYN, MORPH, CBC, GFR, ADIFF, BMP #### [address] [address] Chloride [Moles/Vol] 104 mmol/L Normal 98-107 [facility] ([place]) Comment on above: Performed By: #### A KATLYN, MORPH, CBC, GFR, ADIFF, BMP #### [address] [address] CO2 [Moles/Vol] 25 mmol/L Normal 23-31 [facility] ([place]) Comment on above: Performed By: #### A KATLYN, MORPH, CBC, GFR, ADIFF, BMP #### [address] [address] Creatinine [Mass/Vol] 1.26 mg/dL Normal 0.70-1.30 [facility] ([place]) Comment on above: Performed By: #### A KATLYN, MORPH, CBC, GFR, ADIFF, BMP #### [address] [address] Electrolyte Balance 11.0 mEq/L Normal 4.0-15.0 [facility] ([place]) Comment on above: Performed By: #### A KATLYN, MORPH, CBC, GFR, ADIFF, BMP #### [address] [address] Glucose [Mass/Vol] 136 mg/dL High 83-110 [facility] ([place]) Comment on above: Performed By: #### A KATLYN, MORPH, CBC, GFR, ADIFF, BMP #### [address] [address] Potassium [Moles/Vol] 4.7 mmol/L Normal 3.5-5.1 [facility] ([place]) Comment on above: Performed By: #### A KATLYN, MORPH, CBC, GFR, ADIFF, BMP #### [address] [address] Sodium [Moles/Vol] 140 mmol/L Normal 136-145 [facility] ([place]) Comment on above: Performed By: #### A KATLYN, MORPH, CBC, GFR, ADIFF, BMP #### [address] [address] Urea nitrogen [Mass/Vol] 22 mg/dL High 7-18 [facility] ([place]) Comment on above: Performed By: #### A KATLYN, MORPH, CBC, GFR, ADIFF, BMP #### [address] [address] CBCon 06-18-2022 Erythrocyte distribution width (RBC) [Ratio] 14.2 % Normal 11.5-14.5 [facility] ([place]) Comment on above: Performed By: #### A KATLYN, MORPH, CBC, GFR, ADIFF, BMP #### [address] [address] Hematocrit (Bld) [Volume fraction] 40.9 % Low 42.0-52.0 [facility] ([place]) Comment on above: Performed By: #### A KATLYN, MORPH, CBC, GFR, ADIFF, BMP #### [address] [address] Hgb 13.8 G/dL Low 14.0-18.0 [facility] ([place]) Comment on above: Performed By: #### A KATLYN, MORPH, CBC, GFR, ADIFF, BMP #### [address] [address] MCH (RBC) [Entitic mass] 28.3 pg Normal 27.0-31.2 [facility] ([place]) Comment on above: Performed By: #### A KATLYN, MORPH, CBC, GFR, ADIFF, BMP #### [address] [address] MCHC 33.8 G/dL Normal 31.8-35.4 [facility] ([place]) Comment on above: Performed By: #### A KATLYN, MORPH, CBC, GFR, ADIFF, BMP #### [address] [address] MCV (RBC) [Entitic vol] 83.7 fL Normal 80.0-94.0 [facility] ([place]) Comment on above: Performed By: #### A KATLYN, MORPH, CBC, GFR, ADIFF, BMP #### [address] [address] Platelet 314 10 3/mcL Normal 130-400 [facility] ([place]) Comment on above: Performed By: #### A KATLYN, MORPH, CBC, GFR, ADIFF, BMP #### [address] [address] Platelet mean volume (Bld) [Entitic vol] 8.2 fL Normal 7.4-10.4 [facility] ([place]) Comment on above: Performed By: #### A KATLYN, MORPH, CBC, GFR, ADIFF, BMP #### [address] [address] RBC 4.89 10 6/mcL Normal 4.04-6.13 [facility] ([place] Comment on above: Performed By: #### A KATLYN, MORPH, CBC, GFR, ADIFF, BMP #### [address] [address] WBC 22.1 10 3/mcL High 4.6-10.8 [facility] ([place] Comment on above: Performed By: #### A KATLYN, MORPH, CBC, GFR, ADIFF, BMP #### [address] [address] LABORATORYOrdered By: Tri Fitzgerald on 06-18-2022 Basophil, Absolute 0.0 103/mcL Invalid Interpretation Code 0.0 - 0.2 10^3/mcL AO Workflow SS Basophils/100 WBC (Bld) 0.1 % Invalid Interpretation Code 0.0 - 2.5 % AO Workflow SS Eosinophil, Absolute 0.0 103/mcL Invalid Interpretation Code 0.0 - 0.4 10^3/mcL AO Workflow SS Eosinophils/100 WBC (Bld) 0.0 % Invalid Interpretation Code 0.0 - 7.0 % AO Workflow SS Erythrocyte distribution width (RBC) [Ratio] 14.2 % Invalid Interpretation Code 11.5 - 14.5 % AO Workflow SS Hematocrit (Bld) [Volume fraction] 40.9 % Invalid Interpretation Code 42.0 - 52.0 % AO Workflow SS Hemoglobin (Bld) [Mass/Vol] 13.8 G/dL Invalid Interpretation Code 14.0 - 18.0 G/dL AO Workflow SS Lymphocyte, Absolute 0.9 103/mcL Invalid Interpretation Code 0.8 - 3.9 10^3/mcL AO Workflow SS Lymphocytes/100 WBC (Bld) 4.1 % Invalid Interpretation Code 10.0 - 50.0 % AO Workflow SS MCH (RBC) [Entitic mass] 28.3 pg Invalid Interpretation Code 27.0 - 31.2 pg AO Workflow SS MCHC 33.8 G/dL Invalid Interpretation Code 31.8 - 35.4 G/dL AO Workflow SS MCV (RBC) [Entitic vol] 83.7 fL Invalid Interpretation Code 80.0 - 94.0 fL AO Workflow SS Monocyte, Absolute 1.5 103/mcL Invalid Interpretation Code 0.2 - 1.0 10^3/mcL AO Workflow SS Monocytes/100 WBC (Bld) 6.7 % Invalid Interpretation Code 1.7 - 13.0 % AO Workflow SS Neutrophil, Absolute 19.7 103/mcL Invalid Interpretation Code 2.9 - 6.2 10^3/mcL AO Workflow SS Neutrophils/100 WBC (Bld) 89.1 % Invalid Interpretation Code 37.0 - 80.0 % AO Workflow SS Platelet Estimate Normal (06/18/22 5:10 AM) Invalid Interpretation Code AO Hematology S Platelet mean volume (Bld) [Entitic vol] 8.2 fL Invalid Interpretation Code 7.4 - 10.4 fL AO Workflow SS Platelets (Bld) [#/Vol] 314 103/mcL Invalid Interpretation Code 130 - 400 10^3/mcL AO Workflow SS RBC (Bld) [#/Vol] 4.89 106/mcL Invalid Interpretation Code 4.04 - 6.13 10^6/mcL AO Workflow SS WBC (Bld) [#/Vol] 22.1 103/mcL Invalid Interpretation Code 4.6 - 10.8 10^3/mcL AO Workflow SS LABORATORYOrdered By: SYSTEM SYSTEM on 06-18-2022 Calcium [Mass/Vol] 9.0 mg/dL Invalid Interpretation Code 8.4 - 10.2 mg/dL AO ADM SS Chloride [Moles/Vol] 104 mmol/L Invalid Interpretation Code 98 - 107 mmol/L AO ADM SS CO2 [Moles/Vol] 25 mmol/L Invalid Interpretation Code 23 - 31 mmol/L AO ADM SS Creatinine [Mass/Vol] 1.26 mg/dL Invalid Interpretation Code 0.70 - 1.30 mg/dL AO ADM SS Electrolyte Balance 11.0 mEq/L Invalid Interpretation Code 4.0 - 15.0 mEq/L AO ADM SS GFR/1.73 sq M.predicted among blacks MDRD (S/P/Bld) [Vol rate/Area] 68 ml/min/1.73sqm Invalid Interpretation Code AO Chemistry S GFR/1.73 sq M.predicted among non-blacks MDRD (S/P/Bld) [Vol rate/Area] 56 ml/min/1.73sqm Invalid Interpretation Code AO Chemistry S Glucose [Mass/Vol] 136 mg/dL Invalid Interpretation Code 83 - 110 mg/dL AO ADM SS Potassium [Moles/Vol] 4.7 mmol/L Invalid Interpretation Code 3.5 - 5.1 mmol/L AO ADM SS Sodium [Moles/Vol] 140 mmol/L Invalid Interpretation Code 136 - 145 mmol/L AO ADM SS Urea nitrogen [Mass/Vol] 22 mg/dL Invalid Interpretation Code 7 - 18 mg/dL AO ADM SS Urea nitrogen/Creatinine [Mass ratio] 17 ratio Invalid Interpretation Code 7 - 27 ratio AO ADM SS Gel ABOon 06-17-2022 ABO/Rh Interp Positive Invalid Interpretation Code [facility] ([place]) Comment on above: Performed By: #### DEISI SHAY #### [place] [address] Gel ABSon 06-17-2022 Antibody Screen Gel Negative Normal [facility] ([place]) Comment on above: Performed By: #### DEISI SHAY #### [place] [address] LABORATORYOrdered By: Annie Liu on 06-17-2022 ABO/Rh Interp Positive Invalid Interpretation Code AO BB SS Antibody Screen Gel Negative ABSC (06/17/22 10:11 AM) Invalid Interpretation Code AO BB SS XR KNEE 1 OR 2 VIEWS RIGHTon 06-17-2022 XR KNEE 1 OR 2 VIEWS RIGHT ORIGINAL EXAMINATION: POSTOPERATIVE KNEE TECHNIQUE: 2 views of theright knee were obtained. COMPARISON: CT right knee 06/02/2022 HISTORY: ORDERING SYSTEM PROVIDED HISTORY: Reason for Exam: Status Post Arthroplasty FINDINGS: There is normal mineralization. No acute fracture or dislocation is seen. The patient is status post right knee replacement with appropriate positioning of the prosthesis. There are postsurgical changes with a small joint effusion. Lucencies within the mid/distal femoral diaphysis reflects ghost screws. Vascular calcification noted. IMPRESSION: Status post right knee replacement. Interpreted by: Primo Espinosa MD Preliminary Report By: Primo Espinosa MD Electronically signed By Primo Espinosa MD Dictated Date: 06/17/2022 2:08:50 PM Prelim Date: 06/17/2022 2:10:53 PM Sign Date: 06/17/2022 2:10:53 PM Ordering Provider: ERVIN SMYTH [facility] ([place]) CT KNEE W/O CONTRAST RIGHTon 06-03-2022 CT KNEE W/O CONTRAST RIGHT ORIGINAL EXAMINATION: CT OF THE RIGHT KNEE WITHOUT CONTRAST06/02/2022 12:16 pm TECHNIQUE: CT of the right knee was performed without the administration of intravenous contrast. Multiplanar reformatted images are provided for review. Axial images of the right ankle and hip are also provided per CRISTHIAN protocol. Automated exposure control, iterative reconstruction, and/or weight based adjustment of the mA/kV was utilized to reduce the radiation dose to as low as reasonably achievable. COMPARISON: None. HISTORY: ORDERING SYSTEM PROVIDED HISTORY: Reason for Exam: OSTEOARTHRITIS RIGHT KNEE Robotic knee mapping, right knee pain FINDINGS: No acute fracture. There is moderate lateral subluxation of the patella which may be partly from joint effusion also.. No aggressive osseous lesions. Overall moderate to severe degenerative changes with tricompartment marginal spurring, notably with joint space loss most pronounced of the medial tibiofemoral compartment. There is associated subchondral sclerosis and subchondral cystic change as well as multifocal/scattere d osteophytes about the knee joint. Mild prepatellar/infrapa tellar subcutaneous edema. Prominent arterial lower extremity atherosclerotic calcifications. No drainable subcutaneous fluid collection within the limits of a noncontrast study. Partially visualized diverticulosis without findings concerning for diverticulitis. Large knee joint effusion. No significant popliteal cyst. IMPRESSION: No acute osseous abnormality. Large knee joint effusion. Moderate to severe osteoarthritis of the knee most prominent in the patellofemoral compartment. I have personally reviewed the images of this examination and agree with the resident's findings and interpretation. Interpreted by: Shawn Miguel MD Preliminary Report By: Yayo Rivera Electronically signed By Shawn Miguel MD Dictated Date: 06/02/2022 1:33:37 PM Prelim Date: 06/03/2022 9:06:59 AM Sign Date: 06/03/2022 9:06:59 AM Ordering Provider: ERVIN Lema [facility] ([place]) Vital Signs Date Time Vital Sign Value Performing Clinician Nawaf louiejoy 06-18-2022 13:58-0400 Body temperature 98.42 [degF] DR ERVIN SMYTH MD [facility] 06-18-2022 13:58-0400 Diastolic Blood Pressure Non-Invasive [address] ERVIN SMYTH MD [facility] 06-18-2022 13:58-0400 Heart rate 78 /min DR ERVIN SMYTH MD [facility] 06-18-2022 13:58-0400 Reason For Taking VItal Signs DR ERVIN SMYTH MD [facility] 06-18-2022 13:58-0400 Respiratory rate 18 /min DR ERVIN SMYTH MD [facility] 06-18-2022 13:58-0400 Systolic Blood Pressure Non-Invasive [address] ERVIN SMYTH MD [facility] 06-18-2022 12:51-0400 Body temperature 98.06 [degF] DR ERVIN SMYTH MD [facility] 06-18-2022 12:51-0400 Diastolic Blood Pressure Non-Invasive [address] ERVIN SMYTH MD [facility] 06-18-2022 12:51-0400 Heart rate 70 /min DR ERVIN SMYTH MD [facility] 06-18-2022 12:51-0400 Reason For Taking VItal Signs DR ERVIN SMYTH MD [facility] 06-18-2022 12:51-0400 Respiratory rate 18 /min DR ERVIN SMYTH MD [facility] 06-18-2022 12:51-0400 Systolic Blood Pressure Non-Invasive [address] ERVIN SMYTH MD [facility] 06-18-2022 06:10-0400 Body temperature 98.06 [degF] DR ERVIN SMYTH MD [facility] 06-18-2022 06:10-0400 Diastolic Blood Pressure Non-Invasive [address] ERVIN SMYTH MD [facility] 06-18-2022 06:10-0400 Heart rate 79 /min DR ERVIN SMYTH MD [facility] 06-18-2022 06:10-0400 Reason For Taking VItal Signs DR ERVIN SMYTH MD [facility] 06-18-2022 06:10-0400 Respiratory rate 18 /min DR ERVIN SMYTH MD [facility] 06-18-2022 06:10-0400 Systolic Blood Pressure Non-Invasive [address] ERVIN SMYTH MD [facility] 06-18-2022 04:15-0400 Heart rate 74 /min DR ERVIN SMYTH MD [facility] 06-17-2022 23:46-0400 Heart rate 78 /min DR ERVIN SMYTH MD [facility] 06-17-2022 19:42-0400 Heart rate 80 /min DR ERVIN SMYTH MD [facility] 06-17-2022 14:14-0400 Body height 170.[address] ERVIN SMYTH MD [facility] 06-17-2022 14:14-0400 Body weight 80.[address] ERVIN SMYTH MD [facility] 06-17-2022 14:14-0400 Body weight 27.79 kg/m2 DR ERVIN SMYTH MD [facility] 06-17-2022 13:07-0400 Body temperature 96.26 [degF] DR ERVIN SMYTH MD [facility] 06-17-2022 13:00-0400 Respiratory Rate - Anes 18 br/min DR ERVIN SMYTH MD [facility] 06-17-2022 12:55-0400 Respiratory Rate - Anes 16 br/min DR ERVIN SMYTH MD [facility] 06-17-2022 12:50-0400 Respiratory Rate - Anes 17 br/min DR ERVIN SMYTH MD [facility] 06-17-2022 11:35-0400 Body temperature 93.67 [degF] DR ERVIN SMYTH MD [facility] 06-17-2022 10:11-0400 Body height 170.[address] ERVIN SMYTH MD [facility] 06-17-2022 10:11-0400 Body temperature 98.6 [degF] DR ERVIN SMYTH MD [facility] 06-17-2022 10:11-0400 Body weight 80.[address] ERVIN SMYTH MD [facility] 06-02-2022 11:30-[address] ERVIN SMYTH MD [facility] 06-02-2022 11:30-[address] ERVIN Jarvis [facility] 06-02-2022 11:30-0400 Body height 170.[address] ERVIN SMYTH MD [facility] 06-02-2022 11:30-0400 Body weight 80.[address] ERVIN SMYTH MD [facility] 06-02-2022 11:30-0400 Body weight 27.79 kg/m2 DR ERVIN SMYTH MD [facility] 06-02-2022 11:30-0400 Diastolic Blood Pressure Non-Invasive [address] ERVIN SMYTH MD [facility] 06-02-2022 11:30-0400 Heart rate 64 /min DR ERVIN SMYTH MD [facility] 06-02-2022 11:30-0400 Respiratory rate 18 /min DR ERVIN SMYTH MD [facility] 06-02-2022 11:30-0400 Systolic Blood Pressure Non-Invasive [address] ERVIN SMYTH MD [facility] Encounters Encounter Date Encounter Type Care Provider Facility Start: 06-17-2022 End: 06-18-[address] ERVIN SMYTH MD Facility:B Start: 06-17-2022 End: 06-18-[address] ERVIN SMYTH MD [facility] Start: 06-02-2022 End: 04-04-[address] ERVIN SMYTH MD Facility:B Start: 06-02-2022 End: 06-03-[address] ERVIN SMYTH MD Facility:[facility] Start: 06-02-2022 End: 06-02-[address] ERVIN SMYTH MD [facility] Start: 06-02-2022 End: 06-02-[address] ERVIN SMYTH MD [facility] Procedures Date Procedure Procedure Detail Performing Clinician Start: 06-17-[address] ERVIN SMYTH MD Comment on above: RIGHT Cataract surgery DR ERVIN CESAR MD Comment on above: JEN Colonoscopy DR ERVIN Kaur MD Decompression of med sixto nerve DR ERVIN SMYTH MD Comment on above: JEN Stent, device (physi gladys object) DR ERVIN SMYTH MD Comment on above: LEFT EYE X2 Immunizations Immunization Date Immunization Notes Care Provider [facility] 08-23-2020 SARS-CoV-2 mRNA (tozinameran) vaccine DR ERVIN SMYTH MD [facility] 07-26-2020 SARS-CoV-2 mRNA (tozinameran) vaccine DR ERVIN SMYTH MD [facility] 02-07-2016 zoster vaccine, live DR ASIA SMYTH MD [facility] 12-17-2015 pneumococcal polysaccharide vaccine, [address] ERVIN SMYTH MD [facility] 11-29-2015 influenza virus vacc ine, unspecified formulation DR ERVIN SMYTH MD [facility] 12-14-2014 influenza virus vacc ine, unspecified formulation DR ERVIN SMYTH MD [facility] 12-14-2014 pneumococcal conjuga te vaccine, [address] ERVIN SMYTH MD [facility] 01-03-2014 influenza virus vacc ine, unspecified formulation DR ERVIN SMYTH MD [facility] Payers Date Payer Category Payer [employer] ( and others) [id number] 2022 Medicare [id number] 1950 Unknown [id number] 1950 Unknown [id number] 1950 Unknown [id number] Social History Date Type Detail Facility Start: 06-02-2022 Tobacco smoking status Never s moked tobacco (finding) [facility] Sex Assigned At Male [facility] Functional Status Date Assessment Result Facility 06-18-2022 Functional Status Independent [facility] 06-18-2022 Functional Status Door open, Room check performed [facility] 06-18-2022 Functional Status Front wheeled walker [facility] 06-18-2022 Functional Status 2 [facility] 06-18-2022 Functional Status SCD Removed/Of f bilateral knee high [facility] 06-17-2022 Functional Status Demonstrates C orrect Call Light Use Yes [facility] 06-17-2022 Functional Status Dinner Percent 100 [facility] 06-17-2022 Functional Status [facility] 06-17-2022 Functional Status Single level home [facility] 06-17-2022 Functional Status None [facility] 06-17-2022 Functional Status Maintained [facility] Mental Status Date Assessment Result Facility 06-18-2022 Mental Status Oriented x 4 [facility] 06-18-2022 Mental Status [facility] shaheen [facility] 06-18-2022 Mental Status [facility] Clinical Notes 06-17-2022 to 06-18-2022 Note Date & Type Note Facility 06-18-2022 Note Discharge Instructions Thank you for allowing [facility] to assist you with your healthcare needs. The following is important discharge information regarding your hospital visit. Your Care Team Dr Smyth Your Diagnosis Osteoarthritis HTN (hypertension) GERD (gastroesophageal reflux disease) Leukocytosis Status post total right knee replacement What to do next Follow Up Appointments Follow Up with [facility] When 06/30/2022 10:30 AM EDT Why: This is your follow up appt with Dr Kobi Peters. Where: [address] [place] [phone] Follow Up with [facility] When 06/20/2022 08:30 AM EDT Why: This is your first Physical Therapy appt. Where: [address] [place] [phone] The Following Activity and Diet Have Been Ordered for You Activity: Full weight bearing. Diet: No changes were made to your diet. The Following Treatments Have Been Ordered for You Discharge Labs Discharge Outpatient Labwork - Ordered -- CBC, Post-op Leukocytosis, follow-up within: 2-4 days, 06/18/22 7:42:00 EDT Discharge Radiology No qualifying data available. Other Therapies No qualifying data available. Post Acute Orders No qualifying data available. Allergies NKA Medications Please ask your primary doctor or pharmacist before taking any other medication not listed, including over the counter drugs, herbal medications, vitamins and or supplements as they may interact with your home medications. What How Much When Why Instructions Last Dose New acetaminophen (acetaminophen 500 mg oral capsule) 2 cap by mouth Three (3) times a day as needed for for pain not to exceed 3000 mg/ day Pickup at [facility] #[id number] 06/18/22 at 0856am New docusate-senna (Senokot S 50 mg-8.6 mg oral tablet) 2 tab(s) by mouth Two (2) times a day Duration: 3 Days Take until first bowel movement, then as needed Pickup at [facility] #[id number] 06/18/22 at 0856am New oxyCODONE (oxyCODONE 5 mg oral tablet ( IMMEDIATE release )) See instructions Status post total right knee replacement 1-2 tab(s) Oral q4h Pickup at [facility] #[id number] 06/18/22 at 1pm Changed aspirin 81 Milligram by mouth Twice daily with meals Take 81 mg aspirin twice daily with food for 4 weeks postoperatively for DVT prophylaxis. 06/18/22 at 0856am Unchanged amLODIPine (amLODIPine 5 mg oral tablet) 1 tab(s) by mouth Daily at bedtime none today Unchanged bimatoprost ophthalmic (Lumigan 0.01% ophthalmic solution) 1 Drops Right eye Once a day (in the evening) none today Unchanged biotin (Biotin 5000 mcg oral capsule) 1 cap by mouth Every day none today Unchanged cholecalciferol (Vitamin D3 25 mcg (1000 intl units) oral tablet) 1 tab(s) by mouth Once a day none today Unchanged doxycycline (doxycycline 20 mg oral tablet) 1 tab(s) by mouth Every 12 hours start tomorrow Unchanged elderberry (elderberry 350 mg oral capsule) 1 cap by mouth Once a day none today Unchanged famotidine (famotidine 20 mg oral tablet) 1 tab(s) by mouth Two (2) times a day 06/18/22 at 0856am Unchanged inulin (Fiber Choice 1.5 g oral tablet, chewable) 1 tab(s) Chewed Every day none today Unchanged lisinopril (lisinopril 20 mg oral tablet) 1 tab(s) by mouth Two (2) times a day 06/18/22 at 0856am Unchanged magnesium oxide (magnesium oxide 400 mg oral tablet) 1 tab(s) by mouth Once a day 06/18/22 at 11:30am Unchanged melatonin (Melatonin 3 mg oral tablet) 1 tab(s) by mouth Daily at bedtime as needed for for insomnia none today Unchanged pantoprazole (pantoprazole 40 mg oral enteric coated tablet) 1 tab(s) by mouth Two (2) times daily before meals 06/18/22 at 0506am Unchanged rosuvastatin (rosuvastatin 10 mg oral tablet) 1 tab(s) by mouth Once a day none today Unchanged tamsulosin (tamsulosin 0.4 mg oral capsule) 1 cap by mouth Once a day after a meal 3at 0856am Unchanged vitamin E (vitamin E 180 mg oral capsule) 1 cap by mouth Once a day none today Unchanged zinc acetate (zinc (as acetate) 25 mg oral capsule) 1 cap by mouth Three (3) times a day none today Pharmacy Information [facility] #[id number]: [address] [place], [place] [id number] [phone] Please take this list to your next doctor s visit. Bring all medications you take, including over the counter medications, herbals and other supplements with you to your doctor s visit. Patients and families are reminded to discard old lists and to update any records with all medication providers or retail pharmacies. Education Materials [facility] Post-operative Instructions PLEASE FOLLOW [facility] POST-OP INSTRUCTIONS GIVEN WATCH FOR SIGNS OF INFECTION: call the office ([phone]) if experencing any of the following: (Usually appears 36-48 hours after surgery) Increased temperature (101 degrees Fahrenheit or higher) Redness or swelling Increased uncontrolled pain Foul odor or drainage Calf discomfort Significant swelling Or if having any chest pain, shortness of breath, or difficulty breathing or swallowing call the office or go the nearest Emergency Room. If you have any questions, please call your doctor at the number listed on your follow up instructions. Form: 338A (04175) R: 07/06 Additional Information VACCINATE! IT SAVES LIVES! Members of the community who have not yet received the COVID-19 vaccine and would like to receive it can visit one of [facility] vaccine clinics. There are many vaccine clinic locations within the [facility]. For locations and available times, please visit [email or web address].o hio.gov/. It is important to note that some COVID mobile vaccine clinics are held outdoors and may be canceled in rainy or stormy conditions. To learn more about pediatric vaccinations (ages 5-11), we invite you to visit the [facility] webpage. [email or web address].org/p [email or web address] To learn more about the COVID-19 vaccine, we invite you to visit the CDC website for a list of frequently asked questions. https://www.cdc.gov/coronavirus/ 2019-ncov/vaccines/faq.html [facility] Patient Portal Access Instructions: Stay connected with your healthcare team and access your personal medical information anytime with the [facility] Patient Portal.If you would like a full copy of your medical records, please contact the [facility] Medical Records Department, Thursday through Thursday between 8a.m. and 4:30p.m. Please follow the directions below to access the portal: 1.Access the email account you provided upon registration to the [facility].2.Look for an invitation email from [facility].3.Open the email and access the invitation link: Accept Invitation to [facility].Fill in the required eduardo to create your account. Sign into [email or web address] with your username and password that you created in the above steps to stay up to date. You can then view a summary of results, a summary of your visits, and the ability to download your summaries to your computer or send the information securely to a physician. Remember that your healthcare information is confidential, so carefully consider who you will allow to register on the [facility] Patient Portal for access to your information. You can also access the [facility] Patient Portal on the PressBaby benita. Simply click on Health Records under Health Data and then click on the [email or web address] logo. HOW TO SAFELY DISPOSE OF PRESCRIPTION MEDICATIONS Please use one of the following methods to safely dispose of your unused medications. 1.Use a drug disposal kit: the drug disposal pouch allows you to safely discard your old and unused drugs. Ask your nurse to give you one when you are discharged.2.Visit a local take-back location: Many local pharmacies and police departments have programs that collect old and unwanted prescription drugs. Call your local pharmacy or go to http://WeDeliver.knowNormal/1N0Fs6x to find one close to you.3.Make use of household items: Use cat litter or old coffee grounds to dispose medications if other options are not available. Mix your drugs with these household products, seal them in an airtight container and throw it into the garbage. Call [facility]: [phone] to be sure your drugs can be disposed of in this way. Some medicines may require a different approach.4.Never flush your medications down the toilet. IF YOU HAVE BEEN PRESCRIBED AN OPIOID FOR PAIN If you have been prescribed an opioid (such as hydrocodone, oxycodone or morphine), it is critical to understand the possible side effects and risks of opioid pain medications. Even when taken as directed, opioids can have several side effects including: Tolerance, meaning you might need to take more of a medication for the same pain relief. Nausea, vomiting and/or constipation. Sleepiness, dizziness, dry mouth, confusion, depression or itching. Physical dependence, meaning you have withdrawal symptoms when a medication is stopped, can develop within a few days. KNOW YOUR RESPONSIBILITIES It is important to know exactly how much and how often to take the opioid pain medications you are prescribed. Never take opioids in higher amounts or more often than prescribed. Do not combine opioids with alcohol or other drugs that cause drowsiness, such as benzodiazepines, also known as benzos, including diazepam and alprazolam, muscle relaxants or sleep aids. Never sell or share prescription opioids. This is illegal. Store opioids in a secure place and out of reach of others (including children, family, friends and visitors). The last page of this document has been signed and retained as a CHART COPY. Signatures Patient Education Materials [facility] Post-op Instruction 09/2016 (36756) Medication Leaflets My discharge plan and instructions have been reviewed and explained to me and I,PRIMO REARDON understand my current condition and have read and understand these discharge instructions. I have received a written copy of the plan/instructions. If I have questions, I am aware that I should contact my doctor. Patient/Zoning Technician Signature: Date/Time: Relationship to Patient: Witness Name/Signature: Date/Time: [facility] 06-18-2022 Note Date of Service 06/18/2022 Subjective 71-year-old male with past medical history significant for BPH, HTN, HLD, GERD. Overnight patient remained afebrile and hemodynamically stable with adequate oxygen saturations on room air. White blood cell count elevated to 22,000 however he did receive dexamethasone. No obvious signs of infection. On exam today, pt denies any fever or chills. No headache or dizziness. Denies chest pain, palpitations. No cough, dyspnea, sputum production. Denies N/V/D/C. No melena/hematochezia. No dysuria or hematuria. No new paresthesias. Pain well controlled. Objective Vitals and Measurements T: 36.7 C (Oral) TMIN: 34.26 C TMAX: 36.8 C (Oral) HR: 79(Monitored) RR: 18 BP: 143/89 SpO2: 95% HT: 170.2 cm WT: 80.5 kg BMI: 27.79 Intake and Output 7AM Yesterday to 7AM Today Intake and Output (Last 24 hours) Intake Oral Intake 480.00 Administration Information 1138.61 Supplement Intake 200.00 Output Urinary Catheter Output: 1300.00 Intra-Op EBL 50.00 Stool Count 0.00 Urine Count 6.00 Diaper Count 1.00 Total Summary Total Intake 1818.61 Total Output 1350.00 Fluid Balance 468.61 Physical Exam GEN: Appears chronically ill EYES: No conjunctival erythema, drainage. EOMI EARS: Hearing grossly intact. NOSE: No nasal discharge. THROAT: Oral cavity and pharynx pink and moist. CHEST: Normal S1 and S2. Rhythm is regular. Clear to auscultation, without rales, rhonchi, wheezing. ABD: Positive bowel sounds x 4 quads. Soft, nondistended, nontender. EXT: No significant deformity or joint abnormality. No edema. Peripheral pulses intact. NEURO: Sensation grossly intact SKIN: Surgical dressing in place PSYCH: The mental examination revealed the patient was alert and oriented x 4 Weight Dosing Weight: 80.5 kg (06/17/22) Dosing Weight: 80.5 kg (06/17/22) Medications Medications (26) Active Scheduled: (15) acetaminophen 500 mg Tablet 1,000 mg 2 tab(s), Oral, q6hr amLODIPine 5 mg tablet 5 mg 1 tab(s), Oral, qHS aspirin 81 mg Chewable 81 mg 1 tab(s), Oral, BIDM atorvastatin 10 mg tablet 20 mg 2 tab(s), Oral, qHS docusate sodium 100 mg Capsule 100 mg 1 cap(s), Oral, BID docusate-senna (Senokot S) 50 mg-8.6 mg Tablet 2 tab(s), Oral, BID famotidine 20 mg tablet 20 mg 1 tab(s), Oral, qDay latanoprost ophthalmic 0.005% Solution 1 drop(s), Eye, right, qPM lisinopril 20 mg tablet 20 mg 1 tab(s), Oral, BID magnesium hydroxide 8% Suspension 30 mL UD 30 mL, Oral, Daily magnesium oxide 400 mg Tablet 400 mg 1 tab(s), Oral, qDay multivitamin (Myadec) with minerals Therapeutic Multiple Vitamins with Minerals Tablet 1 tab(s), Oral, qDayM ondansetron 2 mg/ 1 mL 2 mL INJ 4 mg 2 mL, IV Push, q8h pantoprazole 20 mg EC tablet 40 mg 2 tab(s), Oral, BIDAC tamsulosin 0.4 mg Capsule 0.4 mg 1 cap(s), Oral, qDayPC Continuous: (1) Lactated Ringers 1,000 mL 1,000 mL, Intravenous, 100 mL/hr PRN: (10) acetaminophen 325 mg Tablet 650 mg 2 tab(s), Oral, q4h diphenhydramine 25 mg tablet 25 mg 1 tab(s), Oral, q6h diphenhyDRAMINE 50 mg/mL (1 mL) INJ 25 mg 0.5 mL, IV Push, q6h melatonin 3 mg tablet 3 mg 1 tab(s), Oral, qHS morphine 2 mg/mL 1 mL syringe 2 mg 1 mL, IV Push, q1h ondansetron 2 mg/ 1 mL 2 mL INJ 4 mg 2 mL, IV Push, q8h oxycodone 5 mg tablet (immediate release) 5 mg 1 tab(s), Oral, q4h oxycodone 5 mg tablet (immediate release) 10 mg 2 tab(s), Oral, q4h prochlorperazine 10 mg/2 mL vial 5 mg 1 mL, IV Push, q6h sodium biphosphate-sodium phosphate 19 gm-7 gm Enema 133 mL, Rectal, qDay Lab Results 06/18 05:10 WBC: 22.1 H Hgb: 13.8 L Hct: 40.9 L Platelet: 314 Neutrophil %: 89.1 H Glucose Level: 136 H Sodium Level: 140 Potassium Level: 4.7 BUN: 22 H Creatinine Lvl (s): 1.26 Imaging Results and Diagnostics XR Knee 1 or 2 Views Right Result Date: June 17, 2022 Verified By: PRIMO ESPINOSA MD CLINICAL STATEMENT: IMPRESSION: Status post right knee replacement. Assessment/Plan 1. Osteoarthritis 2. HTN (hypertension) 3. GERD (gastroesophageal reflux disease) Osteoarthritis s/p right total knee arthroplasty. Management per primary team. Pain well controlled. HTN- SBP goal 140 or less. Continue home antihypertensives. GERD continue home medications DVT prophylaxis: SCDs Patient is medically optimized for discharge. Labs, diagnostics, and progress notes reviewed as noted in HPI Code Status: Full code Plan of care discussed with patient. All questions answered. Patient verbalizes understanding is agreeable to plan of care. Thank you for requesting our participation in the care of your patient. We will continue to follow during their hospitalization. This dictation was performed using voice recognition software and may include grammatical and/or spelling errors. Digitally Signed by ZEE MONTELONGO on 06/18/2022 10:12 AM [facility] 06-18-2022 Hospital Discharg e instructions Patient Education 06/18/2022 07:38:38 5 - [facility] Post-op Instruction 09/2016 (11660) [facility] Post-operative Instructions PLEASE FOLLOW [facility] POST-OP INSTRUCTIONS GIVEN WATCH FOR SIGNS OF INFECTION: call the office ([phone]) if experencing any of the following: (Usually appears 36-48 hours after surgery) Increased temperature (101 degrees Fahrenheit or higher) Redness or swelling Increased uncontrolled pain Foul odor or drainage Calf discomfort Significant swelling Or if having any chest pain, shortness of breath, or difficulty breathing or swallowing call the office or go the nearest Emergency Room. If you have any questions, please call your doctor at the number listed on your follow up instructions. Form: 338A (66247) R: 07/06 Follow Up Care 01/16/2022 12:51:29 With:[facility] Address: [address] [place] [phone] When:06/30/2022 10:30:00 Comments:This is your follow up appt with Dr Kobi Peters. With:[facility] Address: [address] [place] [address] [phone] When:06/20/2022 08:30:00 Comments:This is your first Physical Therapy appt. [facility] 06-18-2022 Note Date of Service June 18, 2022 Subjective The patient was sitting in bed upon examination. Patient denies any chest pain, shortness of breath, dizziness, lightheadedness, nausea or vomiting, or calf pain. No adverse overnight events. Pain has been controlled on medications. Patient overall is doing well this morning. Patient did require catheterization initially but has been urinating on his own since then. He will continue with his Flomax. Patient reports that he has not seen a urologist and this is currently managed by his primary care physician. He has been referred to urology in which she has an appointment in July 2022. Objective Vitals and Measurements T: 36.8 C (Oral) TMIN: 34.26 C TMAX: 37 C (Temporal Artery) HR: 74 RR: 18 BP: 129/76 SpO2: 93% HT: 170.2 cm WT: 80.5 kg BMI: 27.79 Intake and Output 7AM Yesterday to 7AM Today Intake and Output (Last 24 hours) Intake Administration Information 1138.61 Oral Intake 360.00 Supplement Intake 0.00 Output Urinary Catheter Output: 600.00 Intra-Op EBL 50.00 Stool Count 0.00 Urine Count 4.00 Diaper Count 1.00 Total Summary Total Intake 1498.61 Total Output 650.00 Fluid Balance 848.61 Physical Exam Vital signs stable, afebrile. Patient has had a few elevated blood pressures but currently without any chest pain. SCDs and CORNELIUS hose are in place bilaterally Patient is able to plantarflex and dorsiflex actively Sensation is intact to saphenous, sural, superficial and deep peroneal, and tibial distribution Proximal pin site dressing and main Mepilex dressing clean dry and intact. There is saturation over the distal pin site dressing. Case was discussed with nursing and they will change out this dressing prior to discharge Negative signs and symptoms of DVT, negative Homans bilaterally Weight Dosing Weight: 80.5 kg (06/17/22) Dosing Weight: 80.5 kg (06/17/22) Medications Medications (27) Active Scheduled: (16) acetaminophen 500 mg Tablet 1,000 mg 2 tab(s), Oral, q6hr amLODIPine 5 mg tablet 5 mg 1 tab(s), Oral, qHS aspirin 81 mg Chewable 81 mg 1 tab(s), Oral, BIDM atorvastatin 10 mg tablet 20 mg 2 tab(s), Oral, qHS bisacodyl 5 mg EC tablet 10 mg 2 tab(s), Oral, Once docusate sodium 100 mg Capsule 100 mg 1 cap(s), Oral, BID docusate-senna (Senokot S) 50 mg-8.6 mg Tablet 2 tab(s), Oral, BID famotidine 20 mg tablet 20 mg 1 tab(s), Oral, qDay latanoprost ophthalmic 0.005% Solution 1 drop(s), Eye, right, qPM lisinopril 20 mg tablet 20 mg 1 tab(s), Oral, BID magnesium hydroxide 8% Suspension 30 mL UD 30 mL, Oral, Daily magnesium oxide 400 mg Tablet 400 mg 1 tab(s), Oral, qDay multivitamin (Myadec) with minerals Therapeutic Multiple Vitamins with Minerals Tablet 1 tab(s), Oral, qDayM ondansetron 2 mg/ 1 mL 2 mL INJ 4 mg 2 mL, IV Push, q8h pantoprazole 20 mg EC tablet 40 mg 2 tab(s), Oral, BIDAC tamsulosin 0.4 mg Capsule 0.4 mg 1 cap(s), Oral, qDayPC Continuous: (1) Lactated Ringers 1,000 mL 1,000 mL, Intravenous, 100 mL/hr PRN: (10) acetaminophen 325 mg Tablet 650 mg 2 tab(s), Oral, q4h diphenhydramine 25 mg tablet 25 mg 1 tab(s), Oral, q6h diphenhyDRAMINE 50 mg/mL (1 mL) INJ 25 mg 0.5 mL, IV Push, q6h melatonin 3 mg tablet 3 mg 1 tab(s), Oral, qHS morphine 2 mg/mL 1 mL syringe 2 mg 1 mL, IV Push, q1h ondansetron 2 mg/ 1 mL 2 mL INJ 4 mg 2 mL, IV Push, q8h oxycodone 5 mg tablet (immediate release) 5 mg 1 tab(s), Oral, q4h oxycodone 5 mg tablet (immediate release) 10 mg 2 tab(s), Oral, q4h prochlorperazine 10 mg/2 mL vial 5 mg 1 mL, IV Push, q6h sodium biphosphate-sodium phosphate 19 gm-7 gm Enema 133 mL, Rectal, qDay Lab Results 06/18 05:10 WBC: 22.1 H Hgb: 13.8 L Hct: 40.9 L Platelet: 314 Glucose Level: 136 H Sodium Level: 140 Potassium Level: 4.7 BUN: 22 H Creatinine Lvl (s): 1.26 EKG No qualifying data available. Assessment/Plan 1. Osteoarthritis 1. Status post right total knee arthroplasty postop day #1 2. Continue pain medications: Tylenol and oxycodone 3. DVT prophylaxis: Take 81 mg aspirin twice daily with food for 4 weeks postoperatively for DVT prophylaxis. Patient states he has 2 different medications for his stomach at home. He states he uses these on an as-needed basis. I did recommend that he take 1 of those medications while on the aspirin twice daily. He voiced understanding and agreement. 4. Physical therapy: Weightbearing as tolerated with walker 5. H & H: 13.8/40.9, asymptomatic. Postoperative anemia secondary to acute blood loss from surgery without intraoperative complications. 6. Reactive leukocytosis: Currently 22.1, afebrile. Patient did receive Decadron intraoperatively. I do feel this is all reactive from Decadron as patient is currently without any clinical signs of infection and is currently afebrile. No history of diabetes. Patient will be given order for outpatient lab work including CBC to make sure that the white blood cell count is trending downward. 7. Encouraged incentive spirometry 8. Continue postoperative medical management per medicine: Case was discussed with medicine 9. Disposition: Plan will be for probable discharge home this afternoon as long as patient's pain is well controlled, tolerates therapy and medically stable. Prescription for outpatient lab work will be placed on chart. He has outpatient physical therapy established. He will follow-up per postop instructions. Patient would like his prescriptions E scribed to [facility] in [facility]. Patient has been able to urinate on his own and if he has any complications postoperatively he is to contact his primary care physician. He states he has an appointment with his urologist for the first time in July 2022. He will contact her office with any concerns or questions postoperatively upon discharge. I have reviewed the [place] Automated Rx Reporting System (OARRS) report for this patient for refill pattern and other prescriber involvement as part of the appropriate surveillance for the provision of acute and chronic controlled medications. The report was requested and reviewed on the date of this entry, and was considered in the prescribing process This dictation was created using voice recognition software. Phonetic and/or grammatical errors may exist. 2. HTN (hypertension) 3. GERD (gastroesophageal reflux disease) Digitally Signed by KOBI MATTHEWS PA-C on 06/18/2022 07:38 AM [facility] 06-17-2022 Note ORIGINAL EXAMINATION: POSTOPERATIVE KNEE TECHNIQUE: 2 views of theright knee were obtained. COMPARISON: CT right knee 06/02/2022 HISTORY: ORDERING SYSTEM PROVIDED HISTORY: Reason for Exam: Status Post Arthroplasty FINDINGS: There is normal mineralization. No acute fracture or dislocation is seen. The patient is status post right knee replacement with appropriate positioning of the prosthesis. There are postsurgical changes with a small joint effusion. Lucencies within the mid/distal femoral diaphysis reflects ghost screws. Vascular calcification noted. IMPRESSION: Status post right knee replacement. Interpreted by: Primo Espinosa MD Preliminary Report By: Primo Espinosa MD Electronically signed By Primo Espinosa MD Dictated Date: 06/17/2022 2:08:50 PM Prelim Date: 06/17/2022 2:10:53 PM Sign Date: 06/17/2022 2:10:53 PM Ordering Provider: ERVIN SMYTH [facility] 06-17-2022 Note ORIGINAL EXAMINATION: POSTOPERATIVE KNEE TECHNIQUE: 2 views of theright knee were obtained. COMPARISON: CT right knee 06/02/2022 HISTORY: ORDERING SYSTEM PROVIDED HISTORY: Reason for Exam: Status Post Arthroplasty FINDINGS: There is normal mineralization. No acute fracture or dislocation is seen. The patient is status post right knee replacement with appropriate positioning of the prosthesis. There are postsurgical changes with a small joint effusion. Lucencies within the mid/distal femoral diaphysis reflects ghost screws. Vascular calcification noted. IMPRESSION: Status post right knee replacement. Interpreted by: Primo Espinosa MD Preliminary Report By: Primo Espinosa MD Electronically signed By Primo Espinosa MD Dictated Date: 06/17/2022 2:08:50 PM Prelim Date: 06/17/2022 2:10:53 PM Sign Date: 06/17/2022 2:10:53 PM Ordering Provider: ERVIN [facility] 06-17-2022 Anesthesiology Consult note Patient: PRIMO REARDON Age: 71 years Sex: Male : 1950 Associated Diagnoses: None Author: ALESSANDRO YU APRN-DRAW HAND Preoperative Information Procedure/ Case: RA R TKA Time of last food or liquid consumption: 06/16/2022 21:00:00 Anesthesia history Patient's history: negative. Family's history: negative. Review of Systems Ear/Nose/Mouth/Throat: Negative except as documented in history of present illness. Respiratory: Negative except as documented in history of present illness. Cardiovascular: Negative except as documented in history of present illness. Gastrointestinal: Negative except as documented in history of present illness. Genitourinary: Negative except as documented in history of present illness. Endocrine: Negative except as documented in history of present illness. Musculoskeletal: Negative except as documented in history of present illness. Integumentary: Negative except as documented in history of present illness. Neurologic: Negative except as documented in history of present illness. Health Status Allergies: Allergic Reactions (Selected) NKA, Allergies (1) ActiveReaction NKANone Documented Current medications: (Selected) Inpatient Medications Ordered Betadine 10% topical solution: 17.5 mL, mL/hr, Topical (INT), PREOP pharm Bolus LR 1000 mL: 1,000 mL, IV Bolus, PREOP pharm Decadron: 10 mg, 1 mL, IV Push, AsDirected Kefzol: 2 gram(s), 200 mL/hr, IV Piggyback, PREOP pharm LR 1000 mL: 20 mL/hr, Intravenous, Stop: 06/18/22 17:59:00 EDT Naropin 25 mg + EPINEPHrine 1 mg/mL injectable solution 0.3 mg + morphine 2.5 m mg, 5 mL, 0 mL/hr, Other, PREOP pharm Naropin 25 mg + EPINEPHrine 1 mg/mL injectable solution 0.3 mg + morphine 2.5 m mg, 5 mL, 0 mL/hr, Other, PREOP pharm OxyCONTIN: 10 mg, 1 tab(s), Oral, PREOP pharm Pepcid IV: 20 mg, 2 mL, IV Push, PREOP pharm tranexamic acid 1 g / 100 mL 0.7% NaCl PMX: 1 gram(s), 100 mL, 300 mL/hr, IV Piggyback, AsDirected tranexamic acid 1 g / 100 mL 0.7% NaCl PMX: 1 gram(s), 100 mL, 300 mL/hr, IV Piggyback, AsDirected Documented Medications Documented Biotin 5000 mcg oral capsule: 5,000 mcg, 1 cap(s), Oral, Daily, 0 Refill(s) Fiber Choice 1.5 g oral tablet, chewable: 1.5 gram(s), 1 tab(s), Chewed, Daily, 90 tab(s), 0 Refill(s) Lumigan 0.01% ophthalmic solution: 1 drop(s), Eye, right, qPM, 2.5 mL, 0 Refill(s) Melatonin 3 mg oral tablet: 3 mg, 1 tab(s), Oral, qHS, PRN: for insomnia, 90 tab(s), 0 Refill(s) Vitamin D3 25 mcg (1000 intl units) oral tablet: 25 mcg, 1 tab(s), Oral, qDay, 30 tab(s), 0 Refill(s) amLODIPine 5 mg oral tablet: 5 mg, 1 tab(s), Oral, qHS, 90 tab(s), 0 Refill(s) aspirin 81 mg oral delayed release tablet: 81 mg, 1 tab(s), Oral, Daily, 0 Refill(s) doxycycline 20 mg oral tablet: 20 mg, 1 tab(s), Oral, q12h, 180 tab(s), 0 Refill(s) elderberry 350 mg oral capsule: 350 mg, 1 cap(s), Oral, qDay, 60 cap(s), 0 Refill(s) famotidine 20 mg oral tablet: 20 mg, 1 tab(s), Oral, BID, 60 tab(s), 0 Refill(s) lisinopril 20 mg oral tablet: 20 mg, 1 tab(s), Oral, BID, 0 Refill(s) magnesium oxide 400 mg oral tablet: 400 mg, 1 tab(s), Oral, qDay, 0 Refill(s) pantoprazole 40 mg oral enteric coated tablet: 40 mg, 1 tab(s), Oral, BIDAC, 0 Refill(s) rosuvastatin 10 mg oral tablet: 10 mg, 1 tab(s), Oral, qDay, 30 tab(s), 0 Refill(s) tamsulosin 0.4 mg oral capsule: 0.4 mg, 1 cap(s), Oral, qDayPC, 0 Refill(s) vitamin E 180 mg oral capsule: 180 mg, 1 cap(s), Oral, qDay, 100 cap(s), 0 Refill(s) zinc (as acetate) 25 mg oral capsule: 25 mg, 1 cap(s), Oral, TID, 250 cap(s), 0 Refill(s), Medications (11) Active Scheduled: (10) ceFAZolin 2 gram(s), IV Piggyback, PREOP pharm dexamethasone 10 mg/mL (1mL) SDV 10 mg 1 mL, IV Push, AsDirected famotidine 20 mg/2 mL vial 20 mg 2 mL, IV Push, PREOP pharm Lactated Ringers Injection 1000 mL * Bolus * 1,000 mL, IV Bolus, PREOP pharm oxyCODONE 10 mg ER tablet 10 mg 1 tab(s), Oral, PREOP pharm povidone iodine topical 17.5 mL, Topical (INT), PREOP pharm ropivacaine 25 mg + epinephrine 0.3 mg + morphine 2.5 mg 25 mg 5 mL, Other, PREOP pharm ropivacaine 25 mg + epinephrine 0.3 mg + morphine 2.5 mg 25 mg 5 mL, Other, PREOP pharm tranexamic acid PMX 1 gram(s) 100 mL, IV Piggyback, AsDirected tranexamic acid PMX 1 gram(s) 100 mL, IV Piggyback, AsDirected Continuous: (1) Lactated Ringers 1000 mL 1,000 mL, Intravenous, 20 mL/hr PRN: (0) Problem list: Active Problems (6) CKD (chronic kidney disease) stage 2, GFR 60-89 ml/min Hyperlipidemia Hypertension Osteoarthritis Sleep apnea Transient global amnesia Histories Past Medical History: No active or resolved past medical history items have been selected or recorded. Family History: Stroke Mother Diabetes Mother Procedure history: Carpal tunnel release ([id number]). Comments: 06/02/2022 12:00 ALBERT Richardson Colonoscopy ([id number]). Stent ([id number]). Comments: 06/02/2022 12:00 ALBERT Richardson LEFT EYE X2 Cataract surgery ([id number]). Comments: 06/02/2022 12:01 ALBERT Richardson Social History Social & Psychosocial Habits Alcohol 06/02/2022 Use: Current Frequency: 1-2 times per month Substance Abuse 06/02/2022 Use: Never Tobacco 06/02/2022 Tobacco Use: Never (less than 100 in l Home/Environment 06/02/2022 Domestic Concerns None Lives In Single level home Spouse Name PURVI Marital Status of Patient if Patient Independent Adult: Nutrition/Health 06/02/2022 Type of diet: Regular Eating Difficulties None . Physical Examination Vital Signs 06/17/2022 10:11 EDT Temperature Temporal Artery 37 DegC Peripheral Pulse Rate 66 bpm Respiratory Rate 12 br/min LOW Systolic Blood Pressure Non-Invasive 150 mmHg HI Diastolic Blood Pressure Non-Invasive 91 mmHg HI Vital Signs(last 24 hrs) Last Charted Resp Rate L 12br/min (JUN 17 10:11) SBPH 150mmHg (JUN 17 10:11) DBPH 91mmHg (JUN 17 10:11) Measurements from flowsheet : Measurements 06/17/2022 10:11 EDT Height 170.2 cm Height in inches 67 inch(es) Admission Weight 80.5 kg Weight Lbs 177.1 lb Weight Method Stated [place] Body Weight 66.12 kg Admission Body Mass Index 27.79 m2 Pain assessment: Pain Assessment 06/17/2022 10:11 EDT Primary Pain Intensity 2 Pain Scale Type 0-10 Pain scale . General: Alert and oriented. Airway: Normal neck range of motion. Mallampati classification: II (soft palate, fauces, uvula visible). Head: Normocephalic. Dentition Evaluation: Intact, Own teeth. Respiratory: Lungs are clear to auscultation. Cardiovascular: Normal rate. Heart Sounds: Normal. Gastrointestinal: Soft, Non-tender. Musculoskeletal Normal range of motion. Integumentary: Intact, Warm, Dry. Neurologic: Alert, Oriented, Normal sensory, Normal motor function. Review / Management Results review: No qualifying data available , Lab results 06/17/2022 10:24 EDT citric acid-sodium citrate Not Done: Not Appropriate at this Time (Not Done) 06/17/2022 10:11 EDT Height 170.2 cm Height in inches 67 inch(es) Admission Weight 80.5 kg Weight Lbs 177.1 lb Weight Method Stated [place] Body Weight 66.12 kg Admission Body Mass Index 27.79 m2 Temperature Temporal Artery 37 DegC Peripheral Pulse Rate 66 bpm Respiratory Rate 12 br/min LOW Systolic Blood Pressure Non-Invasive 150 mmHg HI Diastolic Blood Pressure Non-Invasive 91 mmHg HI Primary Pain Intensity 2 Pain Scale Type 0-10 Pain scale Monitor Alarms On and Limits Checked Heart Sounds ICU S1S2 Heart Rhythm Regular Respirations Unlabored Oxygen Therapy Room air Oxygen Saturation 97 % Abdomen Description Non-distended, Symmetric, Soft Abdomen Palpation Non-Tender, Soft Bowel Sounds All Quadrants Present Urinary Elimination Voiding, no difficulties Skin Temperature Warm Skin Description [place] Skin Integrity Intact IV Present Present Hand Right 06/17/2022 20 gauge Peripheral IV Activity: Insert new site Peripheral IV Dressing Condition: Clean, Dry, Intact Peripheral IV Dressing Activity: Transparent dressing Peripheral IV Line Status/Patency: Flushes easily Peripheral IV Line Care: Secured with tape Peripheral IV Site Condition: No complications Peripheral IV Equipment: Extension set, PRN Adaptor Peripheral IV Number of Attempts: 1 Extremity Movement Equal Characteristics of Speech Clear Level of Consciousness Alert MARSHALL Yes Strength All Extremities Strong Affect/Behavior Appropriate, Calm, Cooperative Orientation Oriented x 4 Allergies Yes Consent Form Signed Yes Patient Dressed In Hospital gown, No undergarments Pre-op Preparation Hearing aid, bilateral removed CHG Preoperative Wash/Wipe Night before procedure, Day of procedure Preop Nasal Swab Povidone-Iodine CHG Skin Prep Completed for Eligible Surgery History & Physical Update On Chart Yes History & Physical On Chart Yes Obstructive Sleep Apnea Assess Completed Yes Orientation Assessment Oriented x 4 Activity Status ADL Awake Assistive Device None SCD On/Re-applied left knee high Antiembolism Stocking On/Re-applied left thigh high NPO Status Maintained Standard Safety ID band on, Allergy Band on, Call device within reach, Bed in low position, Wheels locked, Upper/Half-Length side-rails up, Safety level maintained, Non-Slip footwear Demonstrates Correct Call Light Use Yes Allergy Band on and Verified Yes Blood Band on and Verified Yes Patient ID Band on and Verified Yes Implants Verified Yes Pacemaker/AICD Verified Yes Anesthesia Consent Signed Yes Blood Consent Signed Yes Last Fluid Intake 06/16/2022 20:00 Last Food Intake 06/16/2022 20:00 Last Void 06/17/2022 8:00 06/17/2022 10:07 EDT Privacy Restrictions Requested None Sensory Deficits None Sleep Apnea Snore No Sleep Apnea Tired No Sleep Apnea Obstruction No Sleep Apnea Pressure No Sleep Apnea BMI Yes Sleep Apnea Neck Yes Sleep Apnea Score 4 High Risk for Sleep Apnea Yes Safety Brochure Information Reviewed Unable to complete [facility] Video Viewed No Teaching Evaluation No further teaching needed Patient's Current Physicians Patient's Current Physicians (Modified) Admission Note-Nursing Same Day Patient History (Modified) . Assessment and Plan [place] [employer] Anesthesiologists (ASA) physical status classification: Class II. Anesthetic Preoperative Plan Premedication: intravenous. Anesthetic technique: Regional, Spinal. Induction: intravenously. Maintenance airway: Mask. Regional: Spinal, Adductor Canal Block. Postoperative pain management: Per surgeon. Risks discussed: nausea, vomiting, headache, sore throat, dental injury, hypotension, allergic reaction, serious complications. Informed consent: signed by patient. Notes: HTN; Osteoarthritis; MYLES; CKD. Digitally Signed by ALESSANDRO YU on 06/17/2022 10:46 AM Digitally Signed by ALESSANDRO YU on 06/17/2022 10:46 AM [facility] Evaluation + Plan note Future Appointments [facility] Hospital course Narrative No data available for this section [facility] Hospital Discharge instructions No data available for this section [facility] Progress note No data available for this section [facility] Summary Purpose Family History No Family History Records Found Advance Directives No Advanced Directives Records Found Additional Source Comments Patient Care team informatio n (unrecognized section and content) Care Team Personnel Name: SOURAV HANNAH MD Member Role: Primary Care Physician Address: Address: [employer] [address] [place] [address]- Care Team Related Persons Name: PURVI REARDON Address: [address] [address] Care Team Personnel Name: SOURAV HANNAH MD Member Role: Primary Care Physician Address: Address: [facility] [facility] [employer] [address] [place] [address]- Care Team Related Persons Name: PURVI REARDON Address: [address] [address] Care Team Personnel Name: SOURAV HANNAH MD Member Role: Primary Care Physician Address: Address: [facility] [facility] [employer] [address] [place], [place] [address] Care Team Related Persons Name: PURVI REARDON Address: [address] [address] (unrecognized sect ion and content) No Status Records Found INFORMATION SOURCE (unrecogn ized section and content) DATE CREATED AUTHOR 06/24/2022 [facility] ([place]) FOR RECORDS PERTAINING TO PATIENTS WHO ARE OR HAVE BEEN ENROLLED IN A CHEMICAL DEPENDENCY/SUBSTANCEABUSE PROGRAM, SOME INFORMATION MAY BE OMITTED. This clinical summary was aggregated from multiple sources. Caution should be exercised in using it in the provision of clinical care. This summary normalizes information from multiple sources, and as a consequence, information in this document may materially change the coding, format and clinical context of patient data. In addition, data may be omitted in some cases. CLINICAL DECISIONS SHOULD BE BASED ON THE PRIMARY CLINICAL RECORDS. [facility] [employer] [facility]. provides no warranty or guarantee of the accuracy or completeness of information in this document.
[2024-01-05 09:23] LABS: PSA,Total- Diagnostic 2.36 ng/mL (0.0-4.0)
== END | disposition home or self-care (01) ==
PROVIDERS: PCP Family Medicine; Referring Provider Urology; Visit Provider Urology
DX: R97.20 Elevated prostate specific antigen [PSA] (principal)
CPT/HCPCS: 36415; 84153

== ENCOUNTER → 2024-09-05 | Outpatient (CLI) | payer MEDICARE, OTHER, SELFPAY ==
[2024-09-05 10:42] LABS: Hematocrit 42.8 % (40-54); Hemoglobin 14.0 g/dL (13.0-16.5); Immature Granulocytes Count 0.040 X10^3/uL (0.0-0.0); Mean Corp Hgb Conc 32.7 g/dL (32-36); Mean Corpuscular Volume 85.6 fL (80-94); Mean Platelet Vol. 10.6 fl (6.2-12.0); NRBC Flagged by Analyzer 0 % (0-5); Platelet Count 301 K/mm3 (150-450); RBC Distribution Width CV 14.1 % (11.6-14.6); RBC Distribution Width SD 43.8 fl (35.1-43.9); Red Blood Count 5.00 M/mm3 (4.6-6.2); White Blood Count 7.3 K/mm3 (4.4-11.0)
[2024-09-05 10:43] LABS: Creatinine, Urine (random) 180.00 mg/dL (39.00-259.00); Microalbumin,Random Urine 13.8 mg/L (NO RANGE EST.)
[2024-09-05 10:57] LABS: AST(SGOT) 18 U/L (<=37); Alanine Aminotransfer ALT/SGPT 18 U/L (<=46); Albumin, Serum 4.3 g/dL (3.4-4.8); Alkaline Phosphatase 72 U/L (40-129); Anion Gap 10 (5-15); BUN 18 mg/dL (4-19); BUN/Creat Ratio 15.7 RATIO (10-20); Calcium,Total 8.9 mg/dL (7.6-11.0); Carbon Dioxide 23.8 mmol/L (21.0-32.0); Chloride 106 mmol/L (98-108); Cholesterol 151 mg/dL (<=200); Globulin 2.5 g/dL (2.2-4.2); Glucose 103 mg/dL (70-99); Low Density Lipoprotein Calc. 63 mg/dL; PSA,Total- Diagnostic 2.23 ng/mL (0.00-4.00); Potassium 4.2 mmol/L (3.3-5.1); Triglycerides 187 mg/dL; Very Low Density Lipoprotein 37 mg/dL (5-40); Vitamin D,25 Hydroxy 33.4 ng/mL (30-100); cholesterol:hdl ratio screen 2.99
== END | disposition home or self-care (01) ==
LOC: MFPLAB 08:49
PROVIDERS: PCP Family Medicine; Referring Provider Family Medicine; Visit Provider Family Medicine
DX: N40.0 Benign prostatic hyperplasia without lower urinary tract symptoms (principal); D72.829 Elevated white blood cell count, unspecified; E55.9 Vitamin D deficiency, unspecified; I10 Essential (primary) hypertension
CPT/HCPCS: 36415; 80053; 80061; 82043; 82306; 82570; 84153; 85025

== ENCOUNTER → 2024-10-27 | Outpatient (CLI) | payer MEDICARE, OTHER, SELFPAY ==
[2024-10-27 18:09] LABS: AST(SGOT) 15 U/L (<=37); Alanine Aminotransfer ALT/SGPT 15 U/L (<=46); Albumin, Serum 4.4 g/dL (3.4-4.8); Alkaline Phosphatase 71 U/L (40-129); Anion Gap 12 (5-15); BUN 14 mg/dL (4-19); BUN/Creat Ratio 11.2 RATIO (10-20); Calcium,Total 9.4 mg/dL (7.6-11.0); Carbon Dioxide 23.7 mmol/L (21.0-32.0); Chloride 103 mmol/L (98-108); Globulin 2.9 g/dL (2.2-4.2); Glucose 90 mg/dL (70-99); Potassium 4.7 mmol/L (3.3-5.1)
[2024-10-27 18:38] LABS: Hematocrit 42.1 % (40-54); Hemoglobin 13.7 g/dL (13.0-16.5); Immature Granulocytes Count 0.050 X10^3/uL (0.0-0.0); Mean Corp Hgb Conc 32.5 g/dL (32-36); Mean Corpuscular Volume 85.4 fL (80-94); Mean Platelet Vol. 10.4 fl (6.2-12.0); NRBC Flagged by Analyzer 0 % (0-5); Platelet Count 363 K/mm3 (150-450); RBC Distribution Width CV 14.3 % (11.6-14.6); RBC Distribution Width SD 43.9 fl (35.1-43.9); Red Blood Count 4.93 M/mm3 (4.6-6.2); White Blood Count 12.1 K/mm3 (4.4-11.0)
--- OUTSIDE RECORDS SUMMARY | 2024-10-27 19:57 | XMS RPT_ITS | CCD ---
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 Diaz Primary Care Provider [phone] Kevin WHITE, Dr. Diaz Attending Provider Kevin WHITE, Dr. Diaz Referring Provider [phone] Danish Plascencia Attending Danish Boyd Referring Sourav Eagle Primary Care Unavailable Sourav Brown Attending Sourav Eagle Referring Sourav Eagle Primary Care Unavailable Medications Current Medications Medication Drug Class(es) Dates Sig (Normalized) Sig (Original) acetaminophen 500 mg oral capsule (1 source) Start: 06-18-2022 End: 07-02-2022 take 1 capsule by mouth once daily acetaminophen 500 mg oral capsule Dose : 1,000 mg = 2 cap(s), Oral, TID, PRN PRN for pain, not to exceed 3000 mg/day, # 100 cap(s), 0 Refill(s), 07/02/22 7:39:00 EDT, Pharmacy: [facility] #[id number], 170.2, cm, 06/17/22 14:14:00 EDT, Height Start [...] (3 sources) Prostaglandin Analog Start: 06-02-2022 Lumigan 0 .01% ophthalmic solution Dose = 1 drop(s), Eye, right, qPM, # 2.5 mL, 0 Refill(s) Start Date: 06/02/22 Status: Ordered Biotin (3 sources) Start: 06-02-2022 Biotin 5000 mc g oral capsule Dose : 5,000 mcg = 1 cap(s), Oral, Daily, 0 Refill(s) Start Date: 06/02/22 Status: Ordered Co Q-10 (8 sources) Start: 01-10-2013 take 200 mg by mouth once daily Co Q-10 Active 200 MG PO DAILY January 10, 2013 3:13pm Start: 01-10-2013 take 200 mg by mouth once mai y Co Q-10 Active 200 mg PO DAILY January 10, 2013 1:00am Start: 01-10-2013 take 200 mg by mouth once mai y Co Q-10 Active 200 MG PO DAILY January 10, 2013 12:00am Start: 01-10-2013 take 200 mg by mouth once mai y Co Q-10 Active 200 MG PO DAILY January 10, 2013 1:00am docusate sodium 50 mg / sennosides, mcc 8.6 mg oral tablet (1 source) Start: 06-18-2022 End: 06-21-2022 take 1 tablet by mouth twice daily Senokot S 50 mg-8.6 mg oral tablet Dose = 2 tab(s), Oral, BID, Take until first bowel movement, then as needed, X 3 day(s), # 12 tab(s), 0 Refill(s), Pharmacy: [facility][id number], 170.2, cm, 06/17/22 14:14:00 EDT, Height Start Date: 06/18/22 Stop Date: 06/21/22 Status: Ordered doxycycline hyclate 20 mg oral tablet (3 sources) Tetracycline-cla ss Drug Start: 06-02-2022 doxycycline 20 mg oral [...] 0 Refill(s) Start Date: 06/02/22 Status: Ordered hydroCHLOROthiazide 12.5 mg / lisinopril 20 mg oral tablet (8 sources) Thiazide Diuretic, Angiotensin Converting Enzyme Inhibitor Start: 01-10-2013 take 1 tablet by mouth once daily Lisinopril/Hydroc hlorothiazide (Zestoretic 20/12.5 Tablet) 1 TABLET tablet Active 1 {tbl} PO DAILY January 10, 2013 1:00am inulin 1500 mg chewable tablet (3 sources) [...] 0 Refill(s) Start Date: 06/02/22 Status: Ordered Multivitamin With Folic Acid (Thera) 1 TABLET tablet (8 sources) Start: 01-10-2013 take 1 tablet by mouth once daily Multivitamin With Folic Acid (Thera) 1 TABLET tablet Active 1 TABLET PO DAILY January 10, 2013 3:13pm Start: 01-10-2013 take 1 tablet by hola th once daily Multivitamin With Folic Acid (Thera) 1 TABLET tablet Active 1 {tbl} PO DAILY January 10, 2013 1:00am Start: 01-10-2013 take 1 tablet by hola th once daily Multivitamin With Folic Acid (Thera) 1 TABLET tablet Active 1 TABLET PO DAILY January 10, 2013 12:00am Start: 01-10-2013 take 1 tablet by hola th once daily Multivitamin With Folic Acid (Thera) 1 TABLET tablet Active 1 TABLET PO DAILY January 10, 2013 1:00am oxyCODONE hydrochloride 5 mg oral tablet (1 source) Opioid Agonist Start: 06-18-2022 End: 06-25-2022 take 1-2 tablets by mouth every four hours as needed for pain oxyCODONE 5 mg oral tablet ( IMMEDIATE release ) See Instructions, PRN PRN as needed for pain, 1-2 tab(s) Oral q4h, # 42 tab(s), 0 Refill(s), 06/25/22 7:40:00 EDT, Pharmacy: [facility] #[id number], Status post total right knee replacement, 170.2, [...] capsule (3 sources) Start: 06-02-2022 zinc (as aceta te) 25 mg oral capsule Dose : 25 mg = 1 cap(s), Oral, TID, # 250 cap(s), 0 Refill(s) Start Date: 06/02/22 Status: Ordered Problems Active Problems Problem Classification Problem Date Documented Date Episodic/Chronic Diseases of white blood cells (2 sources) Leukocytosis; Translations: [Elevated white blood cell count, unspecified] Onset: 06-18-2022 Chronic Esophageal disorders (1 source) Gastroesophageal reflux disease without esophagitis; Translations: [Gastro-esophageal reflux disease without esophagitis] Onset: 06-17-2022 Chronic Essential hypertension (1 source) Essential hypertension; Translations: [Essential (primary) hypertension] Onset: 06-17-2022 Chronic Hyperplasia of prostate (1 source) Benign prostatic hyperplasia without lower urinary tract symptoms; Translations: [Benign prostatic hyperplasia without lower urinary tract symptoms] Onset: 09-08-2024 Chronic Osteoarthritis (1 source) Osteoarthritis; Translations: [Unspecified osteoarthritis, unspecified site] Onset: 06-17-2022 Chronic Other connective tissue disease (1 source) Artificial knee joint present; Translations: [Presence of right artificial knee joint] Onset: 06-18-2022 Chronic Past or Other Problems Problem Classification Problem Date Documented Da te Episodic/Chronic Other screening for suspected conditions (not mental disorders or infectious disease) (1 source) Elevated prostate specific antigen [PSA]; Translations: [Elevated prostate specific antigen [PSA]] Onset: 01-26-2024 Episodic Results Test Name Value Interpretation Reference Range Facility Absolute lymphocyte countOrd ered By: Sourav Brown on 09-05-2024 Lymphocytes Auto (Unsp spec) [#/Vol] 1.36 10*3/uL 0.83-4.51 [facility] Absolute neutrophil countOrd ered By: Sourav Brown on 09-05-2024 Neutrophils (Bld) [#/Vol] 5.1 10*3/uL 2.0-7.7 [facility] Anion gap in Serum or Plasma Ordered By: Sourav Brown on 09-05-2024 Anion gap [Moles/Vol] 10 mmol/L 5-15 [facility] Automated lymphocyte count a s percentage of total leukocytesOrdered By: Sourav Brown on 09-05-2024 Lymphocytes/100 WBC Auto (Unsp spec) 18.7 % Low 19-41 [facility] BUN/creatinine ratioOrdered By: Sourav Brown on 09-05-2024 Urea nitrogen/Creatinine [Mass ratio] 15.7 mg/mg 10-20 [facility] Basophil percentageOrdered B y: Sourav Brown on 09-05-2024 Basophils/100 WBC (Bld) 0.7 % 0-1 [facility] Bilirubin, totalOrdered By: Sourav Brown on 09-05-2024 Bilirubin [Mass/Vol] 0.71 mg/dL 0.00-1.30 [facility] CBC W/Diff, Automatedon 07-0 7-2025 Absolute Lymph 1.36 X10 3/uL Normal 0.83-4.51 [facility] Comment on above: Order Comment: Order Date: 08/01/24 Order Info: [id number] - CBCD Performed By: #### L 500.4100, L501.9940, L100.0100, L500.4050 #### [facility] [address] [place], [address] Absolute Neut 5.1 X10 3/uL Normal 2.0-7.7 [facility] Comment on above: Order Comment: Order Date: 08/01/24 Order Info: [id number] - CBCD Performed By: #### L 500.4100, L501.9940, L100.0100, L500.4050 #### [facility] [address] [place], [address] Basophils/100 WBC (Bld) 0.7 % Normal 0-1 [facility] Comment on above: Order Comment: Order Date: 08/01/24 Order Info: 0184-1 - CBCD Performed By: #### L 500.4100, L501.9940, L100.0100, L500.4050 #### [facility] [address] [place], [address] Eosinophils/100 WBC (Bld) 1.0 % Normal 0-5 [facility] Comment on above: Order Comment: Order Date: 08/01/24 Order Info: 0184-1 - CBCD Performed By: #### L 500.4100, L501.9940, L100.0100, L500.4050 #### [facility] [address] [place], [address] Erythrocyte distribution width (RBC) [Ratio] 14.1 % Normal 11.6-14.6 [facility] Comment on above: Order Comment: Order Date: 08/01/24 Order Info: 0184-1 - CBCD Performed By: #### L 500.4100, L501.9940, L100.0100, L500.4050 #### [facility] [address] [place], [address] Hematocrit (Bld) [Volume fraction] 42.8 % Normal 40-54 [facility] Comment on above: Order Comment: Order Date: 08/01/24 Order Info: 0184-1 - CBCD Performed By: #### L 500.4100, L501.9940, L100.0100, L500.4050 #### [facility] [address] [place], [address] Hemoglobin (Bld) [Mass/Vol] 14.0 g/dL Normal 13.0-16.5 [facility] Comment on above: Order Comment: Order Date: 08/01/24 Order Info: 0184- - CBCD Performed By: #### L 500.4100, L501.9940, L100.0100, L500.4050 #### [facility] [address] [place], [address] IG% 0.600 Normal 0.0-0.9 [facility] Comment on above: Order Comment: Order Date: 08/01/24 Order Info: [id number]- - CBCD Result Comment: IG% - Immature Granulocytes (promyelocytes, myelocytes and metamyelocytes) > 1% indicates that a LEFT SHIFT is Present. Performed By: #### L 500.4100, L501.9940, L100.0100, L500.4050 #### [facility] [address] [place], [address] Lymphocytes/100 WBC (Bld) 18.7 % Low 19-41 [facility] Comment on above: Order Comment: Order Date: 08/01/24 Order Info: 0184- - CBCD Performed By: #### L 500.4100, L501.9940, L100.0100, L500.4050 #### [facility] [address] [place], [address] MCH (RBC) [Entitic mass] 28.0 pg Normal 27.0-32.0 [facility] Comment on above: Order Comment: Order Date: 08/01/24 Order Info: 0184-1 - CBCD Performed By: #### L 500.4100, L501.9940, L100.0100, L500.4050 #### [facility] [address] [place], [address] MCHC (RBC) [Mass/Vol] 32.7 g/dL Normal 32-36 [facility] Comment on above: Order Comment: Order Date: 08/01/24 Order Info: 0184-1 - CBCD Performed By: #### L 500.4100, L501.9940, L100.0100, L500.4050 #### [facility] [address] [place], [address] MCV (RBC) [Entitic vol] 85.6 fL Normal 80-94 [facility] Comment on above: Order Comment: Order Date: 08/01/24 Order Info: 0184-1 - CBCD Performed By: #### L 500.4100, L501.9940, L100.0100, L500.4050 #### [facility] [address] [place], [address] Monocytes/100 WBC (Bld) 9.5 % Normal 0-10 [facility] Comment on above: Order Comment: Order Date: 08/01/24 Order Info: 0184-1 - CBCD Performed By: #### L 500.4100, L501.9940, L100.0100, L500.4050 #### [facility] [address] [place], [address] Neutrophils/100 WBC (Bld) 69.5 % Normal 47-70 [facility] Comment on above: Order Comment: Order Date: 08/01/24 Order Info: 0184-1 - CBCD Performed By: #### L 500.4100, L501.9940, L100.0100, L500.4050 #### [facility] [address] [place], [address] Nucleated RBC (Bld) [#/Vol] 0 10*3/uL Normal 0-5 [facility] Comment on above: Order Comment: Order Date: 08/01/24 Order Info: 0184-1 - CBCD Performed By: #### L 500.4100, L501.9940, L100.0100, L500.4050 #### [facility] [address] [place], [address] Platelet mean volume (Bld) [Entitic vol] 10.6 fL Normal 6.2-12.0 [facility] Comment on above: Order Comment: Order Date: 08/01/24 Order Info: 0184-1 - CBCD Performed By: #### L 500.4100, L501.9940, L100.0100, L500.4050 #### [facility] [address] [place], [address] Platelets (Bld) [#/Vol] 301 10*3/uL Normal 150-450 [facility] Comment on above: Order Comment: Order Date: 08/01/24 Order Info: 0184-1 - CBCD Performed By: #### L 500.4100, L501.9940, L100.0100, L500.4050 #### [facility] [address] [place], [address] RBC (Bld) [#/Vol] 5.00 10*6/uL Normal 4.6-6.2 [facility] Comment on above: Order Comment: Order Date: 08/01/24 Order Info: 0184-1 - CBCD Performed By: #### L 500.4100, L501.9940, L100.0100, L500.4050 #### [facility] [address] [place], [address] RDW SD 43.8 fl Normal 35.1-43.9 [facility] Comment on above: Order Comment: Order Date: 08/01/24 Order Info: 0184-1 - CBCD Performed By: #### L 500.4100, L501.9940, L100.0100, L500.4050 #### [facility] [address] [place], [address] WBC (Bld) [#/Vol] 7.3 10*3/uL Normal 4.4-11.0 [facility] Comment on above: Order Comment: Order Date: 08/01/24 Order Info: 0184- - CBCD Performed By: #### L 500.4100, L501.9940, L100.0100, L500.4050 #### [facility] [address] [place], [address] Calculated very low density lipoprotein (VLDL) cholesterol measurementOrdered By: Sourav Brown on 09-05-2024 Calculated very low density lipoprotein (VLDL) cholesterol measurement 37 mg/dL 5-40 [facility] Carbon dioxide, total [Moles /volume] in Central venous bloodOrdered By: Sourav Brown on 09-05-2024 CO2 [Moles/Vol] 23.8 mmol/L 21.0-32.0 [facility] Chloride assayOrdered By: Josh Brown on 09-05-2024 Chloride [Moles/Vol] 106 mmol/L 98-108 [facility] Comprehensive Metabolic Prof ilon 09-05-2024 Albumin [Mass/Vol] 4.3 g/dL Normal 3.4-4.8 [facility] Comment on above: Order Comment: Order Date: 08/01/24 Order Info: [id number] - CMP Order Info: [id number] - LIPID Order Info: 0783-1 - PSAD Performed By: #### L 500.4100, L501.9940, L100.0100, L500.4050 #### [facility] [address] [place], [address] Albumin/Globulin [Mass ratio] 1.7 {ratio} Normal 0.9-2.4 [facility] Comment on above: Order Comment: Order Date: 08/01/24 Order Info: 785- - CMP Order Info: - LIPID Order Info: 782-03 - PSAD Performed By: #### L 500.4100, L501.9940, L100.0100, L500.4050 #### [facility] [address] [place], [address] ALK PHOS 72 U/L Normal 40-129 [facility] Comment on above: Order Comment: Order Date: 08/01/24 Order Info: [id number] - CMP Order Info: - LIPID Order Info: [id number] - PSAD Performed By: #### L 500.4100, L501.9940, L100.0100, L500.4050 #### [facility] [address] [place], [address] ALT [Catalytic activity/Vol] 18 U/L Normal <=46 [facility] Comment on above: Order Comment: Order Date: 08/01/24 Order Info: 785-03 - CMP Order Info: [id number] - LIPID Order Info: 782-03 - PSAD Performed By: #### L 500.4100, L501.9940, L100.0100, L500.4050 #### [facility] [address] [place], [address] AST [Catalytic activity/Vol] 18 U/L Normal <=37 [facility] Comment on above: Order Comment: Order Date: 08/01/24 Order Info: [id number] - CMP Order Info: - LIPID Order Info: 782-03 - PSAD Performed By: #### L 500.4100, L501.9940, L100.0100, L500.4050 #### [facility] [address] [place], [place], [address] Bilirubin [Mass/Vol] 0.71 mg/dL Normal 0.00-1.30 [facility] Comment on above: Order Comment: Order Date: 08/01/24 Order Info: [id number] - CMP Order Info: - LIPID Order Info: 782-03 - PSAD Performed By: #### L 500.4100, L501.9940, L100.0100, L500.4050 #### [facility] [address] [place], [address] BUN/CRE 15.7 RATIO Normal 10-20 [facility] Comment on above: Order Comment: Order Date: 08/01/24 Order Info: [id number] - CMP Order Info: - LIPID Order Info: [id number] - PSAD Performed By: #### L 500.4100, L501.9940, L100.0100, L500.4050 #### [facility] [address] [place], [address] Calcium [Mass/Vol] 8.9 mg/dL Normal 7.6-11.0 [facility] Comment on above: Order Comment: Order Date: 08/01/24 Order Info: [id number] - CMP Order Info: [id number] - LIPID Order Info: 782-03 - PSAD Performed By: #### L 500.4100, L501.9940, L100.0100, L500.4050 #### [facility] [address] [place], [address] Chloride [Moles/Vol] 106 mmol/L Normal 98-108 [facility] Comment on above: Order Comment: Order Date: 08/01/24 Order Info: 785-03 - CMP Order Info: - LIPID Order Info: 782-03 - PSAD Performed By: #### L 500.4100, L501.9940, L100.0100, L500.4050 #### [facility] [address] [place], [place], [address] CO2 [Moles/Vol] 23.8 mmol/L Normal 21.0-32.0 [facility] Comment on above: Order Comment: Order Date: 08/01/24 Order Info: [id number] - CMP Order Info: - LIPID Order Info: 782-03 - PSAD Performed By: #### L 500.4100, L501.9940, L100.0100, L500.4050 #### [facility] [address] [place], [place], [address] Creatinine [Mass/Vol] 1.12 mg/dL Normal 0.70-1.20 [facility] Comment on above: Order Comment: Order Date: 08/01/24 Order Info: 785-03 - CMP Order Info: - LIPID Order Info: 782-03 - PSAD Performed By: #### L 500.4100, L501.9940, L100.0100, L500.4050 #### [facility] [address] [place], [place], [address] GAP 10 Normal 5-15 [facility] Comment on above: Order Comment: Order Date: 08/01/24 Order Info: 785-03 - CMP Order Info: - LIPID Order Info: [id number] - PSAD Performed By: #### L 500.4100, L501.9940, L100.0100, L500.4050 #### [facility] [address] [place], [place], [address] GFR/1.73 sq M.predicted among non-blacks MDRD (S/P/Bld) [Vol rate/Area] 69 mL/min/{1.73_m2} Normal >60 [facility] Comment on above: Order Comment: Order Date: 08/01/24 Order Info: 07 - CMP Order Info: [id number] - LIPID Order Info: 782-03 - PSAD Result Comment: mL/m in/1.73m2 CKD-EPI Creatinine Equation (2020) Performed By: #### L 500.4100, L501.9940, L100.0100, L500.4050 #### [facility] [address] [place], [address] Globulin (S) [Mass/Vol] 2.5 g/dL Normal 2.2-4.2 [facility] Comment on above: Order Comment: Order Date: 08/01/24 Order Info: 0786- - CMP Order Info: [id number] - LIPID Order Info: [id number] - PSAD Performed By: #### L 500.4100, L501.9940, L100.0100, L500.4050 #### [facility] [address] [place], [address] Glucose [Mass/Vol] 103 mg/dL High 70-99 [facility] Comment on above: Order Comment: Order Date: 08/01/24 Order Info: 785-03 - CMP Order Info: [id number] - LIPID Order Info: 0783 - PSAD Performed By: #### L 500.4100, L501.9940, L100.0100, L500.4050 #### [facility] [address] [place], [address] Potassium [Moles/Vol] 4.2 mmol/L Normal 3.3-5.1 [facility] Comment on above: Order Comment: Order Date: 08/01/24 Order Info: 0786 - CMP Order Info: [id number] - LIPID Order Info: [id number] - PSAD Performed By: #### L 500.4100, L501.9940, L100.0100, L500.4050 #### [facility] [address] [place], [address] Sodium [Moles/Vol] 140 mmol/L Normal 133-145 [facility] Comment on above: Order Comment: Order Date: 08/01/24 Order Info: 0786- - CMP Order Info: [id number] - LIPID Order Info: [id number] - PSAD Performed By: #### L 500.4100, L501.9940, L100.0100, L500.4050 #### [facility] [address] [place], [address] T PROT 6.7 g/dL Normal 5.9-8.4 [facility] Comment on above: Order Comment: Order Date: 08/01/24 Order Info: [id number] - CMP Order Info: [id number] - LIPID Order Info: [id number] - PSAD Performed By: #### L 500.4100, L501.9940, L100.0100, L500.4050 #### [facility] [address] [place], [address] Urea nitrogen [Mass/Vol] 18 mg/dL Normal 4-19 [facility] Comment on above: Order Comment: Order Date: 08/01/24 Order Info: [id number] - CMP Order Info: [id number] - LIPID Order Info: [id number] - PSAD Performed By: #### L 500.4100, L501.9940, L100.0100, L500.4050 #### [facility] [address] [place], [address] Eosinophil percentageOrdered By: Sourav Brown on 09-05-2024 Eosinophils/100 WBC (Bld) 1.0 % 0-5 [facility] Erythrocyte distribution wid th ratioOrdered By: Sourav Brown on 09-05-2024 Erythrocyte distribution width (RBC) [Ratio] 14.1 % 11.6-14.6 [facility] Erythrocyte distribution wid th standard deviationOrdered By: Sourav Brown on 09-05-2024 Erythrocyte distribution width (RBC) [Ratio] 43.8 fl 35.1-43.9 [facility] Glomerular filtration rate ( GFR) estimation/1.73 sq m using serum, plasma, or whole bOrdered By: Sourav Brown on 09-05-2024 GFR/1.73 sq M.predicted among non-blacks MDRD (S/P/Bld) [Vol rate/Area] 69 mL/min/{1.73_m2} >60 [facility] Comment on above: mL/min/1.73m2 CKD-EP I Creatinine Equation (2020) Hematocrit Auto (Bld) [Volum e fraction]Ordered By: Sourav Brown on 09-05-2024 Hematocrit (Bld) [Volume fraction] 42.8 % 40-54 [facility] Hemoglobin measurementOrdere d By: Sourav Brown on 09-05-2024 Hemoglobin (Bld) [Mass/Vol] 14.0 g/dL 13.0-16.5 [facility] Immature granulocytes/100 WB C Auto (Bld)Ordered By: Sourav Brown on 09-05-2024 Immature granulocytes/100 WBC (Bld) 0.600 % 0.0-0.9 [facility] Comment on above: IG% - Immature Granu locytes (promyelocytes, myelocytes and metamyelocytes) > 1% indicates that a LEFT SHIFT is Present. LDL calc ser/plasOrdered By: Sourav Brown on 09-05-2024 Cholesterol in LDL [Mass/Vol] 63 mg/dL [facility] Comment on above: Crtfhaohjz=827-619 m g/dL & Higher Hwrf=721 mg/dL or greater Laboratory - Chemistry and C hemistry - challengeOrdered By: Sourav Brown on 09-05-2024 AST [Catalytic activity/Vol] 18 U/L <38 [facility] Lipid Profileon 09-05-2024 CHOL:HDL 2.99 Normal [facility] Comment on above: Order Comment: Order Date: 08/01/24 Order Info: [id number] - CMP Order Info: [id number] - LIPID Order Info: [id number] - PSAD Performed By: #### L 500.4100, L501.9940, L100.0100, L500.4050 #### [facility] [address] [place], [place], [address] Cholesterol [Mass/Vol] 151 mg/dL Normal <=200 [facility] Comment on above: Order Comment: Order Date: 08/01/24 Order Info: [id number] - CMP Order Info: [id number] - LIPID Order Info: [id number] - PSAD Result Comment: Chol esterol level, Desirable <200 mg/dL Borderline high cholesterol 200-239 mg/dL High cholesterol >=240 mg/dL Recommendations of the NCEP Adult Treatment Panel for the following risk-cutoff thresholds for the [place] population. Performed By: #### L 500.4100, L501.9940, L100.0100, L500.4050 #### [facility] [address] [place], [address] Cholesterol in HDL [Mass/Vol] 51 mg/dL Normal [facility] Comment on above: Order Comment: Order Date: 08/01/24 Order Info: 07- - CMP Order Info: - LIPID Order Info: [id number] - PSAD Result Comment: [place] Cholesterol Education Program (NCEP) guidelines: <40 mg/dL: Low HDL-cholesterol (major risk factor for CHD) >= 60 mg/dL: High HDL-cholesterol (negative risk factor for CHD) HDL-cholesterol is affected by a number of factors, e.g. smoking, exercise, hormones, sex and age. Performed By: #### L 500.4100, L501.9940, L100.0100, L500.4050 #### [facility] [address] [place], [address] Cholesterol in LDL [Mass/Vol] 63 mg/dL Normal [facility] Comment on above: Order Comment: Order Date: 08/01/24 Order Info: 0786 - CMP Order Info: [id number] - LIPID Order Info: [id number] - PSAD Result Comment: Bord nczmed=167-895 mg/dL Higher Jpkx=319 mg/dL or greater Performed By: #### L 500.4100, L501.9940, L100.0100, L500.4050 #### [facility] [address] [place], [address] Cholesterol in VLDL [Mass/Vol] 37 mg/dL Normal 5-40 [facility] Comment on above: Order Comment: Order Date: 08/01/24 Order Info: 07- - CMP Order Info: [id number] - LIPID Order Info: 83- - PSAD Performed By: #### L 500.4100, L501.9940, L100.0100, L500.4050 #### [facility] [address] [place], [place], [id number] Triglyceride [Mass/Vol] 187 mg/dL Normal [facility] Comment on above: Order Comment: Order Date: 08/01/24 Order Info: [id number] - CMP Order Info: [id number] - LIPID Order Info: [id number] - PSAD Result Comment: The drugs N-Acetylcysteine and Metamizole may falsely depress this assay. Normal range: <150 mg/dL Borderline High: 150-199 mg/dL High: 200-499 mg/dL Very High: >500 mg/dL Performed By: #### L 500.4100, L501.9940, L100.0100, L500.4050 #### [facility] [address] [place], [place], [id number] MCV (mean corpuscular volume ) determinationOrdered By: Sourav Brown on 09-05-2024 MCV (RBC) [Entitic vol] 85.6 fL 80-94 [facility] Mean corpuscular hemoglobin (MCH) determinationOrdered By: Sourav Brown on 09-05-2024 MCH (RBC) [Entitic mass] 28.0 pg 27.0-32.0 [facility] Mean corpuscular hemoglobin concentration (MCHC) determinationOrdered By: Sourav Brown on 09-05-2024 MCHC (RBC) [Mass/Vol] 32.7 g/dL 32-36 [facility] Mean platelet volume determi nationOrdered By: Sourav Brown on 09-05-2024 Platelet mean volume (Bld) [Entitic vol] 10.6 fL 6.2-12.0 [facility] Microalb:Creat Ratio,Random URon 09-05-2024 Creatinine [Mass/Vol] 180.00 mg/dL Normal 39.00-259.00 [facility] Comment on above: Performed By: #### L 502.0250, L506.1001 #### [facility] [address] [place], [address] MALB:CREAT 7.7 mg/g CRE Normal [facility] Comment on above: Performed By: #### L 502.0250, L506.1001 #### [facility] [address] [place], [address] MICROALBUMIN,UR 13.8 mg/L Normal NO RANGE EST. [facility] Comment on above: Performed By: #### L 502.0250, L506.1001 #### [facility] [address] [place], [address] Monocyte percentageOrdered B y: Sourav Brown on 09-05-2024 Monocytes/100 WBC (Bld) 9.5 % 0-10 [facility] Neutrophil percentageOrdered By: Sourav Brown on 09-05-2024 Neutrophils/100 WBC (Bld) 69.5 % 47-70 [facility] Nucleated red blood cell per centageOrdered By: Sourav Brown on 09-05-2024 Nucleated RBC/100 WBC (Bld) [Ratio] 0 % 0-5 [facility] PSA,Total- Diagnosticon 07-0 PSA, DIAGNOSTIC 2.23 ng/mL Normal 0.00-4.00 [facility] Comment on above: Order Comment: Order Date: 08/01/24 Order Info: [id number] - CMP Order Info: [id number] - LIPID Order Info: [id number] - PSAD Result Comment: This test was performed using the [employer] tPSA method. Measured values of a patient??sample can vary depending on the testing procedure used. PSA values determined on patient samples by different testing procedures cannot be used interchangeably. If there is a change in PSA assays while monitoring therapy, sequential testing should be performed to confirm baseline values. Performed By: #### L 500.4100, L501.9940, L100.0100, L500.4050 #### [facility] [address] [place], [address] Platelet countOrdered By: Josh Brown on 09-05-2024 Platelets (Bld) [#/Vol] 301 10*3/uL 150-450 [facility] Potassium measurement (mass/ volume)Ordered By: Sourav Brown on 09-05-2024 Potassium (Unsp spec) [Mass/Vol] 4.2 mmol/L 3.3-5.1 [facility] RBC Auto (Bld) [#/Vol]Ordere d By: Sourav Brown on 09-05-2024 RBC (Bld) [#/Vol] 5.00 10*6/uL 4.6-6.2 [facility] Random urine creatinine zarina urement (mass/volume)Ordered By: Sourav Brown on 09-05-2024 Creatinine Unsp time (U) [Mass/Vol] 180.00 mg/dL 39.00-259.00 [facility] Screening total cholesterol/ high density lipoprotein (HDL) cholesterol ratioOrdered By: Sourav Brown on 09-05-2024 Cholesterol.total/Choles terol in HDL [Mass ratio] 2.99 {ratio} [facility] Serum creatinine measurement (mass/volume)Ordered By: Sourav Brown on 09-05-2024 Creatinine [Mass/Vol] 1.12 mg/dL 0.70-1.20 [facility] Serum globulin measurementOr dered By: Sourav Brown on 09-05-2024 Globulin (S) [Mass/Vol] 2.5 g/dL 2.2-4.2 [facility] Serum glucose measurement (m ass/volume)Ordered By: Sourav Brown on 09-05-2024 Glucose [Mass/Vol] 103 mg/dL High 70-99 [facility] Serum or plasma alanine mcelroy otransferase (ALT) measurementOrdered By: Sourav Brown on 09-05-2024 ALT [Catalytic activity/Vol] 18 U/L <47 [facility] Serum or plasma albumin zarina urement (mass/volume)Ordered By: Sourav Brown on 09-05-2024 Albumin [Mass/Vol] 4.3 g/dL 3.4-4.8 [facility] Serum or plasma albumin/glob ulin mass ratioOrdered By: Sourav Brown on 09-05-2024 Albumin/Globulin [Mass ratio] 1.7 {ratio} 0.9-2.4 [facility] Serum or plasma alkaline joann sphatase measurementOrdered By: Sourav Brown on 09-05-2024 ALP [Catalytic activity/Vol] 72 U/L 40-129 [facility] Serum or plasma calcium zarina urement (mass/volume)Ordered By: Sourav Brown on 09-05-2024 Calcium [Mass/Vol] 8.9 mg/dL 7.6-11.0 [facility] Serum or plasma cholesterol in HDL measurement (mass/volume)Ordered By: Sourav Brown on 09-05-2024 Cholesterol in HDL [Mass/Vol] 51 mg/dL >40 [facility] Comment on above: National Cholesterol Education Program (NCEP) guidelines:<40 mg/dL: Low HDL-cholesterol (major risk factor for CHD)>= 60 mg/dL: High HDL-cholesterol (negative risk factor for CHD)HDL-cholesterol is affected by a number of factors, e.g. smoking, exercise, hormones, sex and age. Serum or plasma cholesterol measurement (mass/volume)Ordered By: Sourav Brown on 09-05-2024 Cholesterol [Mass/Vol] 151 mg/dL <201 [facility] Comment on above: Cholesterol level, D esirable <200 mg/dLBorderline high cholesterol 200-239 mg/dLHigh cholesterol >=240 mg/dLRecommendations of the NCEP Adult Treatment Panel for the following risk-cutoff thresholds for the [place] population. Serum or plasma urea nitroge n measurement (mass/volume)Ordered By: Sourav Brown on 09-05-2024 Urea nitrogen [Mass/Vol] 18 mg/dL 4-19 [facility] Sodium levelOrdered By: Sourav Brown on 09-05-2024 Sodium [Moles/Vol] 140 mmol/L 133-145 [facility] Total proteinOrdered By: Alessandra Brown on 09-05-2024 Protein [Mass/Vol] 6.7 g/dL 5.9-8.4 [facility] Triglycerides measurementOrd ered By: Sourav Brown on 09-05-2024 Triglyceride [Mass/Vol] 187 mg/dL <199 [facility] Comment on above: The drugs N-Acetylcy steine and Metamizole may falsely depress this assay. Normal range: <150 mg/dLBorderline High: 150-199 mg/dLHigh: 200-499 mg/dLVery High: >500 mg/dL Urine albumin measurement wi detection limit of 20 mg/L or less (mass/volume)Ordered By: Sourav Brown on 09-05-2024 Albumin DL <= 20 mg/L (U) [Mass/Vol] 13.8 mg/L NO RANGE EST. [facility] Vitamin D,25 Hydroxyon 09-05 Vitamin D 25-OH 33.4 ng/mL Normal 30-100 [facility] Comment on above: Order Comment: Order Date: 08/01/24 Order Info: [id number] - CMP Order Info: [id number] - LIPID Order Info: [id number] - PSAD Result Comment: Pascale min D Status Deficiency: <20 ng/mL (50nmol/L) Insufficiency: 20-30 ng/mL (50-75 nmol/L) Sufficiency: 30-100 ng/mL (75-250 nmol/L) Toxicity: >100 ng/mL (>250 nmol/L) Performed By: #### L 502.0250, L506.1001 #### [facility] [address] [place], [place], [id number] White blood cell (WBC) count Ordered By: Sourav Brown on 09-05-2024 WBC (Bld) [#/Vol] 7.3 10*3/uL 4.4-11.0 [facility] PSA,Total- Diagnosticon 11-0 PSA, DIAGNOSTIC 2.36 ng/mL Normal 0.0-4.0 [facility] Comment on above: Result Comment: This test was performed using the TPSA assay method for the [employer] chemistry system. Values obtained with different assay methods cannot be used interchangably. When changing PSA assays in the course of monitoring a patient, additional sequential testing should be carried out to confirm baseline values. Performed By: #### L 501.9940 #### [facility] [address] [place], [place], [id number] Absolute lymphocyte countOrd ered By: Sourav Brown on 01-15-2023 Lymphocytes Auto (Unsp spec) [#/Vol] 1.49 10*3/uL 0.83-4.51 [facility] Basophil percentageOrdered B y: Sourav Brown on 01-15-2023 Basophils/100 WBC (Bld) 0.8 % 0-1 [facility] Bilirubin [Mass/Vol] 0.50 mg/dL 0.20-1.00 [facility] Comment on above: For patients on eltr ombopag therapy, use of Dimension [place] TBIL is not recommended. Chloride [Moles/Vol] 109 mmol/L 98-107 [facility] Eosinophils/100 WBC (Bld) 0.8 % 0-5 [facility] Glucose [Mass/Vol] 114 mg/dL 74-106 [facility] Comment on above: Fasting Glucose resu lt from 100 to 125 mg/dL suggests IMPAIRED HOMEOSTASIS per A.D.A. criteria. Neutrophils (Bld) [#/Vol] 4.8 10*3/uL 2.0-7.7 [facility] Neutrophils/100 WBC (Bld) 67.3 % 47-70 [facility] Potassium [Moles/Vol] 3.5 mmol/L 3.5-5.1 [facility] Protein [Mass/Vol] 6.4 g/dL 6.4-8.2 [facility] Sodium [Moles/Vol] 140 mmol/L 136-145 [facility] WBC (Bld) [#/Vol] 7.1 10*3/uL 4.4-11.0 [facility] Blood erythrocytes count (nu mber/volume)Ordered By: Sourav Brown on 01-15-2023 RBC (Bld) [#/Vol] 4.73 10*6/uL 4.6-6.2 [facility] Blood hemoglobin measurement (mass/volume)Ordered By: Sourav Brown on 01-15-2023 Hemoglobin (Bld) [Mass/Vol] 13.5 g/dL 13.0-16.5 [facility] Blood lymphocytes/100 leukoc ytesOrdered By: Sourav Brown on 01-15-2023 Lymphocytes/100 WBC (Bld) 21.0 % 19-41 [facility] Blood monocytes/100 leukocyt esOrdered By: Sourav Brown on 01-15-2023 Monocytes/100 WBC (Bld) 9.7 % 0-10 [facility] Blood platelet mean volumeOr dered By: Sourav Brown on 01-15-2023 Platelet mean volume (Bld) [Entitic vol] 10.2 fL 6.2-12.0 [facility] Determination of erythrocyte mean corpuscular volume (MCV)Ordered By: Sourav Brown on 01-15-2023 MCV (RBC) [Entitic vol] 88.8 fL 80-94 [facility] Hematocrit Auto (Bld) [Volum e fraction]Ordered By: Sourav Brown on 01-15-2023 Hematocrit (Bld) [Volume fraction] 42.0 % 40-54 [facility] - Chemistry and C hemistry - challengeOrdered By: Sourav Brown on 01-15-2023 ALP [Catalytic activity/Vol] 73 U/L 45-117 [facility] ALT [Catalytic activity/Vol] 23 U/L 16-61 [facility] CO2 [Moles/Vol] 24.0 mmol/L 21.0-32.0 [facility] Globulin (S) [Mass/Vol] 2.9 g/dL 2.2-4.2 [facility] Urea nitrogen/Creatinine [Mass ratio] 13.4 mg/mg 10-20 [facility] - Hematology and Cell countsOrdered By: Sourav Brown on 01-15-2023 Erythrocyte distribution width (RBC) [Entitic vol] 48.7 fL 35.1-43.9 [facility] Erythrocyte distribution width (RBC) [Ratio] 14.9 % 11.6-14.6 [facility] Immature granulocytes/100 WBC (Bld) 0.400 % 0.0-0.9 [facility] Comment on above: IG% - Immature Granu locytes (promyelocytes, myelocytes and metamyelocytes) > 1% indicates that a LEFT SHIFT is Present. MCH (RBC) [Entitic mass] 28.5 pg 27.0-32.0 [facility] Nucleated RBC/100 WBC (Bld) [Ratio] 0 % 0-5 [facility] MCHC Auto (RBC) [Mass/Vol]Or dered By: Sourav Brown on 01-15-2023 MCHC (RBC) [Mass/Vol] 32.1 g/dL 32-36 [facility] No Panel InformationOrdered By: Sourav Brown on 01-15-2023 Estimated GFR (MDRD) Amer 83 mL/min >60 [facility] Comment on above: GFR Calc Estimated GFR (MDRD) Non-Af Amer 68 mL/min >60 [facility] Comment on above: Non- GFR Calc Prostate Specific Antigen Total 1.69 ng/mL 0.0-4.0 [facility] Comment on above: This test was perfor med using the TPSA assay method for the[employer] chemistry system. Values obtained with differentassay methods cannot be used interchangably.When changing PSA assays in the course of monitoring apatient, additional sequential testing should be carriedout to confirm baseline values. Vitamin D 25-Hydroxy 51.6 ng/mL [facility] Comment on above: Vitamin D 25(OH) Sta tus Range Deficiency <20 ng/mL (50nmol/L) Insufficiency 20 - 30 ng/mL (50 - 75 nmol/L) Sufficiency 30 - 100 ng/mL (75 - 250 nmol/L) Toxicity >100 ng/mL (>250 nmol/L) Platelets bldOrdered By: Alessandra Brown on 01-15-2023 Platelets (Bld) [#/Vol] 279 10*3/uL 150-450 [facility] Serum or plasma albumin zarina urement (mass/volume)Ordered By: Sourav Brown on 01-15-2023 Albumin [Mass/Vol] 3.5 g/dL 3.2-5.0 [facility] Serum or plasma albumin/glob ulin mass ratioOrdered By: Sourav Brown on 01-15-2023 Albumin/Globulin [Mass ratio] 1.2 {ratio} 0.9-2.4 [facility] Serum or plasma calcium zarina urement (mass/volume)Ordered By: Sourav Brown on 01-15-2023 Calcium [Mass/Vol] 8.9 mg/dL 8.5-10.1 [facility] Serum or plasma creatinine m easurement (mass/volume)Ordered By: Sourav Brown on 01-15-2023 Creatinine [Mass/Vol] 1.12 mg/dL 0.70-1.30 [facility] Comment on above: The validity of the calculated GFR & GFRAA in patients over 70 years has not been determined. Clinical correlation is essential. Serum or plasma urea nitroge n measurement (mass/volume)Ordered By: Sourav Brown on 01-15-2023 Urea nitrogen [Mass/Vol] 15 mg/dL 7-18 [facility] Thin prep Papanicolaou smear with manual screeningOrdered By: Sourav Brown on 01-15-2023 Thin prep Papanicolaou smear with manual screening 13 U/L 15-37 [facility] Thin prep Papanicolaou smear with manual screening 7 5-15 [facility] No Panel InformationOrdered By: Danish Plascencia on 01-13-2023 Prostate Specific Antigen Total 1.79 ng/mL 0.0-4.0 [facility] Comment on above: This test was perfor med using the TPSA assay method for the[employer] chemistry system. Values obtained with differentassay methods cannot be used interchangably.When changing PSA assays in the course of monitoring apatient, additional sequential testing should be carriedout to confirm baseline values. Basophil percentageOrdered B y: Kobi Matthews on 06-23-2022 WBC (Bld) [#/Vol] 9.3 10*3/uL 4.4-11.0 [facility] Blood erythrocytes count (nu mber/volume)Ordered By: Kobi Matthews on 06-23-2022 RBC (Bld) [#/Vol] 4.41 10*6/uL 4.6-6.2 [facility] Blood hemoglobin measurement (mass/volume)Ordered By: Kobi Matthews on 06-23-2022 Hemoglobin (Bld) [Mass/Vol] 12.3 g/dL 13.0-16.5 [facility] Blood platelet mean volumeOr dered By: Kobi Matthews on 06-23-2022 Platelet mean volume (Bld) [Entitic vol] 9.8 fL 6.2-12.0 [facility] Determination of erythrocyte mean corpuscular volume (MCV)Ordered By: Kobi Matthews on 06-23-2022 MCV (RBC) [Entitic vol] 88.7 fL 80-94 [facility] Hematocrit Auto (Bld) [Volum e fraction]Ordered By: Kobi Matthews on 06-23-2022 Hematocrit (Bld) [Volume fraction] 39.1 % 40-54 [facility] - Hematology and Cell countsOrdered By: Kobi Matthews on 06-23-2022 Erythrocyte distribution width (RBC) [Entitic vol] 45.5 fL 35.1-43.9 [facility] Erythrocyte distribution width (RBC) [Ratio] 14.0 % 11.6-14.6 [facility] MCH (RBC) [Entitic mass] 27.9 pg 27.0-32.0 [facility] MCHC Auto (RBC) [Mass/Vol]Or dered By: Kobi Matthews on 06-23-2022 MCHC (RBC) [Mass/Vol] 31.5 g/dL 32-36 [facility] Platelets bldOrdered By: Kobi Matthews on 06-23-2022 Platelets (Bld) [#/Vol] 381 10*3/uL 150-450 [facility] .Auto Diffon 06-18-2022 Basophil, Absolute 0.0 10 3/mcL Normal 0.0-0.2 [facility] ([place]) Comment on above: Performed By: #### A KATLYN, MORPH, CBC, GFR, ADIFF, BMP #### [address] [address] Basophils/100 WBC (Bld) 0.1 % Normal 0.0-2.5 A [facility] ([place]) Comment on above: Performed By: #### A KATLYN, MORPH, CBC, GFR, ADIFF, BMP #### [address] [address] Eosinophil, Absolute 0.0 10 3/mcL Normal 0.0-0.4 [facility] ([place]) Comment on above: Performed By: #### A KATLYN, MORPH, CBC, GFR, ADIFF, BMP #### [address] [address] Eosinophils/100 WBC (Bld) 0.0 % Normal 0.0-7.0 [facility] ([place]) Comment on above: Performed By: #### A KATLYN, MORPH, CBC, GFR, ADIFF, BMP #### [address] [address] Lymphocyte, Absolute 0.9 10 3/mcL Normal 0.8-3.9 [facility] ([place]) Comment on above: Performed By: #### A KATLYN, MORPH, CBC, GFR, ADIFF, BMP #### [address] [address] Lymphocytes/100 WBC (Bld) 4.1 % Low 10.0-50.0 [facility] ([place]) Comment on above: Performed By: #### A KATLYN, MORPH, CBC, GFR, ADIFF, BMP #### [address] [address] Monocyte, Absolute 1.5 10 3/mcL High 0.2-1.0 [facility] ([place]) Comment on above: Performed By: #### A KATLYN, MORPH, CBC, GFR, ADIFF, BMP #### [address] [address] Monocytes/100 WBC (Bld) 6.7 % Normal 1.7-13.0 [facility] ([place]) Comment on above: Performed By: #### A KATLYN, MORPH, CBC, GFR, ADIFF, BMP #### [address] [address] Neutrophils/100 WBC (Bld) 89.1 % High 37.0-80.0 [facility] ([place]) Comment on above: Performed By: #### A KATLYN, MORPH, CBC, GFR, ADIFF, BMP #### [address] [address] .GFRon 06-18-2022 GFR Non- 56 ml/min/1.73sqm Normal [facility] ([place]) Comment on above: Result Comment: GFR Population [...] KATLYN, MORPH, CBC, GFR, ADIFF, BMP #### [address] [address] GFR 68 ml/min/1.73sqm Normal [facility] ([place]) Comment on above: Result Comment: GFR Population [...] KATLYN, MORPH, CBC, GFR, ADIFF, BMP #### [address] [address] .Morphon 06-18-2022 Platelet Estimate Normal Normal [facility] ([place]) Comment on above: Performed By: #### A KATLYN, MORPH, CBC, GFR, ADIFF, BMP #### [address] [address] .NEUABSon 06-18-2022 Neutrophil, Absolute 19.7 10 3/mcL High 2.9-6.2 A [facility] ([place]) Comment on above: Performed By: #### A KATLYN, MORPH, CBC, GFR, ADIFF, BMP #### [address] [address] BMPon 06-18-2022 BUN/Creatinine Ratio 17 ratio Normal 7-27 [facility] ([place]) Comment on above: Performed By: #### A KATLYN, MORPH, CBC, GFR, ADIFF, BMP #### [address] [address] Calcium [Mass/Vol] 9.0 mg/dL Normal 8.4-10.2 [facility] ([place]) Comment on above: Performed By: #### A KATLYN, MORPH, CBC, GFR, ADIFF, BMP #### [address] [address] Chloride [Moles/Vol] 104 mmol/L Normal 98-107 [facility] ([place]) Comment on above: Performed By: #### A KATLYN, MORPH, CBC, GFR, ADIFF, BMP #### [place] [address] CO2 [Moles/Vol] 25 mmol/L Normal 23-31 [facility] ([place]) Comment on above: Performed By: #### A KATLYN, MORPH, CBC, GFR, ADIFF, BMP #### [address] [address] Creatinine [Mass/Vol] 1.26 mg/dL Normal 0.70-1.30 [facility] ([place]) Comment on above: Performed By: #### A KATLYN, MORPH, CBC, GFR, ADIFF, BMP #### [address] [address] Electrolyte Balance 11.0 mEq/L Normal 4.0-15.0 [facility] ([place]) Comment on above: Performed By: #### A KATLYN, MORPH, CBC, GFR, ADIFF, BMP #### [address] [address] Glucose [Mass/Vol] 136 mg/dL High 83-110 [facility] ([place]) Comment on above: Performed By: #### A KATLYN, MORPH, CBC, GFR, ADIFF, BMP #### [address] [address] Potassium [Moles/Vol] 4.7 mmol/L Normal 3.5-5.1 [facility] ([place]) Comment on above: Performed By: #### A KATLYN, MORPH, CBC, GFR, ADIFF, BMP #### [address] [address] Sodium [Moles/Vol] 140 mmol/L Normal 136-145 [facility] ([place]) Comment on above: Performed By: #### A KATLYN, MORPH, CBC, GFR, ADIFF, BMP #### [address] [address] Urea nitrogen [Mass/Vol] 22 mg/dL High 7-18 [facility] ([place]) Comment on above: Performed By: #### A KATLYN, MORPH, CBC, GFR, ADIFF, BMP #### [address] [address] CBCon 06-18-2022 Erythrocyte distribution width (RBC) [Ratio] 14.2 % Normal 11.5-14.5 [facility] ([place]) Comment on above: Performed By: #### A KATLYN, MORPH, CBC, GFR, ADIFF, BMP #### [address] [address] Hematocrit (Bld) [Volume fraction] 40.9 % Low 42.0-52.0 [facility] ([place]) Comment on above: Performed By: #### A KATLYN, MORPH, CBC, GFR, ADIFF, BMP #### [address] [address] Hgb 13.8 G/dL Low 14.0-18.0 [facility] ([place]) Comment on above: Performed By: #### A KATLYN, MORPH, CBC, GFR, ADIFF, BMP #### [address] [address] MCH (RBC) [Entitic mass] 28.3 pg Normal 27.0-31.2 [facility] ([place]) Comment on above: Performed By: #### A KATLYN, MORPH, CBC, GFR, ADIFF, BMP #### [address] [address] MCHC 33.8 G/dL Normal 31.8-35.4 [facility] ([place]) Comment on above: Performed By: #### A KATLYN, MORPH, CBC, GFR, ADIFF, BMP #### [address] [address] MCV (RBC) [Entitic vol] 83.7 fL Normal 80.0-94.0 A [facility] ([place]) Comment on above: Performed By: #### A KATLYN, MORPH, CBC, GFR, ADIFF, BMP #### [address] [address] Platelet 314 10 3/mcL Normal 130-400 [facility] ([place]) Comment on above: Performed By: #### A KATLYN, MORPH, CBC, GFR, ADIFF, BMP #### [address] [address] Platelet mean volume (Bld) [Entitic vol] 8.2 fL Normal 7.4-10.4 [facility] ([place]) Comment on above: Performed By: #### A KATLYN, MORPH, CBC, GFR, ADIFF, BMP #### [address] [address] RBC 4.89 10 6/mcL Normal 4.04-6.13 [facility] ([place]) Comment on above: Performed By: #### A KATLYN, MORPH, CBC, GFR, ADIFF, BMP #### [address] [address] WBC 22.1 10 3/mcL High 4.6-10.8 [facility] ([place]) Comment on above: Performed By: #### A KATLYN, MORPH, CBC, GFR, ADIFF, BMP #### [address] [address] LABORATORYOrdered By: Tri Fitzgerald on 06-18-2022 Basophil, [...] 06-17-2022 ABO/Rh Interp Positive Invalid Interpretation Code [facility] ([place]) Comment on above: Performed By: #### A DEISI HAMMER #### [address] [address] Gel ABSon 06-17-2022 Antibody Screen Gel Negative Normal [facility] ([place]) Comment on above: Performed By: #### A DEISI HAMMER #### [address] [address] LABORATORYOrdered By: Annie Liu on 06-17-2022 ABO/Rh [...] 06/17/2022 2:10:53 PM Ordering Provider: ERVIN SMYTH [facility] ([place]) Absolute lymphocyte countOrd ered By: Kobi Matthews on 06-03-2022 Lymphocytes Auto (Unsp spec) [#/Vol] 1.74 10*3/uL 0.83-4.51 [facility] Basophil percentageOrdered B y: Kobi Matthews on 06-03-2022 Basophils/100 WBC (Bld) 0.8 % 0-1 [facility] Eosinophils/100 WBC (Bld) 0.9 % 0-5 [facility] Neutrophils (Bld) [#/Vol] 5.9 10*3/uL 2.0-7.7 [facility] Neutrophils/100 WBC (Bld) 68.1 % 47-70 [facility] WBC (Bld) [#/Vol] 8.7 10*3/uL 4.4-11.0 [facility] Blood erythrocytes count (nu mber/volume)Ordered By: Kobi Matthews on 06-03-2022 RBC (Bld) [#/Vol] 4.95 10*6/uL 4.6-6.2 [facility] Blood hemoglobin measurement (mass/volume)Ordered By: Kobi Matthews on 06-03-2022 Hemoglobin (Bld) [Mass/Vol] 14.2 g/dL 13.0-16.5 [facility] Blood lymphocytes/100 leukoc ytesOrdered By: Kobi Clarkeyoselin on 06-03-2022 Lymphocytes/100 WBC (Bld) 20.1 % 19-41 [facility] Blood monocytes/100 leukocyt esOrdered By: Kobi Clarkeyoselin on 06-03-2022 Monocytes/100 WBC (Bld) 9.9 % 0-10 [facility] Blood platelet mean volumeOr dered By: Kobi Clarkeyoselin on 06-03-2022 Platelet mean volume (Bld) [Entitic vol] 9.9 fL 6.2-12.[address] [facility] [address] KNEE W/O CONTRAST RIGHTon 06-03-2022 CT [...] Date: 06/03/2022 9:06:59 AM Ordering Provider: ERVIN SMYTH [facility] ([place]) Determination of erythrocyte mean corpuscular volume (MCV)Ordered By: Kobi Matthews on 06-03-2022 MCV (RBC) [Entitic vol] 87.9 fL 80-94 [facility] Hematocrit Auto (Bld) [Volum e fraction]Ordered By: Kobi Matthews on 06-03-2022 Hematocrit (Bld) [Volume fraction] 43.5 % 40-54 [facility] - Hematology and Cell countsOrdered By: Kobi Matthews on 06-03-2022 Erythrocyte distribution width (RBC) [Entitic vol] 44.9 fL 35.1-43.9 [facility] Erythrocyte distribution width (RBC) [Ratio] 13.9 % 11.6-14.6 [facility] Immature granulocytes/100 WBC (Bld) 0.200 % 0.0-0.9 [facility] Comment on above: IG% - Immature Granu locytes (promyelocytes, myelocytes and metamyelocytes) > 1% indicates that a LEFT SHIFT is Present. MCH (RBC) [Entitic mass] 28.7 pg 27.0-32.0 [facility] Nucleated RBC/100 WBC (Bld) [Ratio] 0 % 0-5 [facility] MCHC Auto (RBC) [Mass/Vol]Or dered By: Kobi Matthews on 06-03-2022 MCHC (RBC) [Mass/Vol] 32.6 g/dL 32-36 [facility] Platelets bldOrdered By: Kobi Matthews on 06-03-2022 Platelets (Bld) [#/Vol] 310 10*3/uL 150-450 [facility] Basophil percentageOrdered B y: Dr. Brown on 05-26-2022 Basophil percentage 2.3 mg/dL 2.5-4.9 [facility] Bilirubin [Mass/Vol] 0.80 mg/dL 0.20-1.00 [facility] Comment on above: For patients on eltr ombopag therapy, use of Dimension [place] TBIL is not recommended. Chloride [Moles/Vol] 108 mmol/L 98-107 [facility] Glucose [Mass/Vol] 86 mg/dL 74-106 [facility] Potassium [Moles/Vol] 4.0 mmol/L 3.5-5.1 [facility] Protein [Mass/Vol] 7.3 g/dL 6.4-8.2 [facility] Sodium [Moles/Vol] 139 mmol/L 136-145 [facility] Laboratory - Chemistry and C hemistry - challengeOrdered By: Dr. Brown on 05-26-2022 ALP [Catalytic activity/Vol] 70 U/L 45-117 [facility] ALT [Catalytic activity/Vol] 26 U/L 16-61 [facility] CO2 [Moles/Vol] 27.0 mmol/L 21.0-32.0 [facility] Globulin (S) [Mass/Vol] 3.4 g/dL 2.2-4.2 [facility] Magnesium [Mass/Vol] 2.2 mg/dL 1.6-2.6 [facility] Urea nitrogen/Creatinine [Mass ratio] 20.4 mg/mg 10-20 [facility] No Panel InformationOrdered By: Dr. Brown on 05-26-2022 Estimated GFR (MDRD) Amer 86 mL/min >60 [facility] Comment on above: GFR Calc Estimated GFR (MDRD) Non-Af Amer 71 mL/min >60 [facility] Comment on above: Non- GFR Calc Prostate Specific Antigen Screen 5.56 ng/mL 0.00-4.00 [facility] Comment on above: This test was perfor med using the TPSA assay method for the[employer] chemistry system. Values obtained with differentassay methods cannot be used interchangably.When changing PSA assays in the course of monitoring apatient, additional sequential testing should be carriedout to confirm baseline values. Urine Microalbumin/Creatinine Ratio 9.7 mg/g CRE <30 [facility] Serum or plasma albumin zarina urement (mass/volume)Ordered By: Dr. Brown on 05-26-2022 Albumin [Mass/Vol] 3.9 g/dL 3.2-5.0 [facility] Serum or plasma albumin/glob ulin mass ratioOrdered By: Dr. Brown on 05-26-2022 Albumin/Globulin [Mass ratio] 1.1 {ratio} 0.9-2.4 [facility] Serum or plasma calcium zarina urement (mass/volume)Ordered By: Dr. Brown on 05-26-2022 Calcium [Mass/Vol] 8.9 mg/dL 8.5-10.1 [facility] Serum or plasma creatinine m easurement (mass/volume)Ordered By: Dr. Brown on 05-26-2022 Creatinine [Mass/Vol] 1.08 mg/dL 0.70-1.30 [facility] Comment on above: The validity of the calculated GFR & GFRAA in patients over 70 years has not been determined. Clinical correlation is essential. Serum or plasma urea nitroge n measurement (mass/volume)Ordered By: Dr. Brown on 05-26-2022 Urea nitrogen [Mass/Vol] 22 mg/dL 7-18 [facility] Thin prep Papanicolaou smear with manual screeningOrdered By: Dr. Brown on 05-26-2022 Thin prep Papanicolaou smear with manual screening 16 U/L 15-37 [facility] Thin prep Papanicolaou smear with manual screening 4 5-15 [facility] Thin prep Papanicolaou smear with manual screening 11.6 mg/L NO RANGE EST. [facility] Urine creatinine measurement (mass/volume)Ordered By: Dr. Brown on 05-26-2022 Creatinine (U) [Mass/Vol] 119.00 mg/dL NO RANGE EST. [facility] Absolute lymphocyte counton 09-10-2021 Lymphocytes Auto (Unsp spec) [#/Vol] 1.54 10*3/uL 0.83-4.51 [facility] Work Phone: Basophil percentageon 2021 Basophils/100 WBC (Bld) 0.4 % 0-1 [facility] Work Phone: Bilirubin [Mass/Vol] 0.90 mg/dL 0.20-1.00 [facility] Work Phone: Comment on above: For patients on eltr ombopag therapy, use of Dimension [place] TBIL is not recommended. Chloride [Moles/Vol] 107 mmol/L 98-107 [facility] Work Phone: [phone] Eosinophils/100 WBC (Bld) 0.4 % 0-5 [facility] Work Phone: Glucose [Mass/Vol] 93 mg/dL 74-106 [facility] Work Phone: [phone] Neutrophils (Bld) [#/Vol] 7.1 10*3/uL 2.0-7.7 [facility] Work Phone: [phone] Neutrophils/100 WBC (Bld) 72.8 % 47-70 [facility] Work Phone: [phone] Potassium [Moles/Vol] 4.4 mmol/L 3.5-5.1 [facility] Work Phone: [phone] Protein [Mass/Vol] 7.1 g/dL 6.4-8.2 [facility] Work Phone: [phone] Sodium [Moles/Vol] 138 mmol/L 136-145 [facility] Work Phone: [phone] WBC (Bld) [#/Vol] 9.8 10*3/uL 4.4-11.0 [facility] Work Phone: [phone] Blood erythrocytes count (nu mber/volume)on 09-10-2021 RBC (Bld) [#/Vol] 5.06 10*6/uL 4.6-6.2 [facility] Work Phone: Blood hemoglobin measurement (mass/volume)on 09-10-2021 Hemoglobin (Bld) [Mass/Vol] 14.4 g/dL 13.0-16.5 [facility] Work Phone: Blood lymphocytes/100 leukoc yteson 09-10-2021 Lymphocytes/100 WBC (Bld) 15.7 % 19-41 [facility] Work Phone: [phone] Blood monocytes/100 leukocyt eson 09-10-2021 Monocytes/100 WBC (Bld) 10.3 % 0-10 [facility] Work Phone: Blood platelet mean volumeon 09-10-2021 Platelet mean volume (Bld) [Entitic vol] 10.9 fL 6.2-12.0 [facility] Work Phone: Determination of erythrocyte mean corpuscular volume (MCV)on 09-10-2021 MCV (RBC) [Entitic vol] 87.5 fL 80-94 [facility] Work Phone: Hematocrit Auto (Bld) [Volum e fraction]on 09-10-2021 Hematocrit (Bld) [Volume fraction] 44.3 % 40-54 [facility] Work Phone: Laboratory - Chemistry and C hemistry - challengeon 09-10-2021 ALP [Catalytic activity/Vol] 63 U/L 45-117 [facility] Work Phone: ALT [Catalytic activity/Vol] 23 U/L 16-61 [facility] Work Phone: CO2 [Moles/Vol] 26.0 mmol/L 21.0-32.0 [facility] Work Phone: Globulin (S) [Mass/Vol] 3.3 g/dL 2.2-4.2 [facility] Work Phone: Lipase [Catalytic activity/Vol] 103 U/L 73-393 [facility] Work Phone: Urea nitrogen/Creatinine [Mass ratio] 15.1 mg/mg 10-20 [facility] Work Phone: Laboratory - Hematology and Cell countson 09-10-2021 Erythrocyte distribution width (RBC) [Entitic vol] 46.2 fL 35.1-43.9 [facility] Work Phone: Erythrocyte distribution width (RBC) [Ratio] 14.4 % 11.6-14.6 [facility] Work Phone: Immature granulocytes/100 WBC (Bld) 0.400 % 0.0-0.9 [facility] Work Phone: Comment on above: IG% - Immature Granu locytes (promyelocytes, myelocytes and metamyelocytes) > 1% indicates that a LEFT SHIFT is Present. MCH (RBC) [Entitic mass] 28.5 pg 27.0-32.0 [facility] Work Phone: Nucleated RBC/100 WBC (Bld) [Ratio] 0 % 0-5 [facility] Work Phone: MCHC Auto (RBC) [Mass/Vol]on 09-10-2021 MCHC (RBC) [Mass/Vol] 32.5 g/dL 32-36 [facility] Work Phone: No Panel Informationon 09-10 Estimated GFR (MDRD) Amer 72 mL/min >60 [facility] Work Phone: Comment on above: GFR Calc Estimated GFR (MDRD) Non-Af Amer 60 mL/min >60 [facility] Work Phone: Comment on above: Non- GFR Calc Platelets bldon 09-10-2021 Platelets (Bld) [#/Vol] 274 10*3/uL 150-450 [facility] Work Phone: Serum or plasma C reactive p rotein measurement (mass/volume)on 09-10-2021 CRP [Mass/Vol] 52.70 mg/L 0.0-3.0 [facility] Work Phone: Comment on above: C-Reactive Protein ( CRP) provides useful information for thediagnosis, therapy and monitoring of inflammatory processesand associated diseases. For the evaluation of Relative Riskfor Cardiovascular Disease, a High Sensitivity CRP (HSCRP)should be ordered. Serum or plasma albumin zarina urement (mass/volume)on 09-10-2021 Albumin [Mass/Vol] 3.8 g/dL 3.2-5.0 [facility] Work Phone: Serum or plasma albumin/glob ulin mass ratioon 09-10-2021 Albumin/Globulin [Mass ratio] 1.2 {ratio} 0.9-2.4 [facility] Work Phone: Serum or plasma calcium zarina urement (mass/volume)on 09-10-2021 Calcium [Mass/Vol] 9.1 mg/dL 8.5-10.1 [facility] Work Phone: Serum or plasma creatinine m easurement (mass/volume)on 09-10-2021 Creatinine [Mass/Vol] 1.26 mg/dL 0.70-1.30 [facility] Work Phone: Comment on above: The validity of the calculated GFR & GFRAA in patients over 70 years has not been determined. Clinical correlation is essential. Serum or plasma urea nitroge n measurement (mass/volume)on 09-10-2021 Urea nitrogen [Mass/Vol] 19 mg/dL 7-18 [facility] Work Phone: Thin prep Papanicolaou smear with manual screeningon 09-10-2021 Thin prep Papanicolaou smear with manual screening 13 U/L 15-37 [facility] Work Phone: Thin prep Papanicolaou smear with manual screening 5 5-15 [facility] Work Phone: Basophil percentageon 2021 Basophil percentage 3.4 mg/dL 2.5-4.9 [facility] Work Phone: Chloride [Moles/Vol] 107 mmol/L 98-107 [facility] Work Phone: Glucose [Mass/Vol] 92 mg/dL 74-106 [facility] Work Phone: Potassium [Moles/Vol] 3.9 mmol/L 3.5-5.1 [facility] Work Phone: Sodium [Moles/Vol] 140 mmol/L 136-145 [facility] Work Phone: Laboratory - Chemistry and C hemistry - challengeon 08-09-2021 CO2 [Moles/Vol] 27.0 mmol/L 21.0-32.0 [facility] Work Phone: Magnesium [Mass/Vol] 2.4 mg/dL 1.6-2.6 [facility] Work Phone: Urea nitrogen/Creatinine [Mass ratio] 21.2 mg/mg 10-20 [facility] Work Phone: No Panel Informationon 08-09 Estimated GFR (MDRD) Amer 82 mL/min >60 [facility] Work Phone: Comment on above: GFR Calc Estimated GFR (MDRD) Non-Af Amer 68 mL/min >60 [facility] Work Phone: Comment on above: Non- GFR Calc Parathyroid Hormone (Intact) 41.5 pg/mL 18.4-80.1 [facility] Work Phone: Serum or plasma albumin zarina urement (mass/volume)on 08-09-2021 Albumin [Mass/Vol] 3.9 g/dL 3.2-5.0 [facility] Work Phone: Serum or plasma calcium zarina urement (mass/volume)on 08-09-2021 Calcium [Mass/Vol] 9.4 mg/dL 8.5-10.1 [facility] Work Phone: Serum or plasma creatinine m easurement (mass/volume)on 08-09-2021 Creatinine [Mass/Vol] 1.13 mg/dL 0.70-1.30 [facility] Work Phone: Comment on above: The validity of the calculated GFR & GFRAA in patients over 70 years has not been determined. Clinical correlation is essential. Serum or plasma urea nitroge n measurement (mass/volume)on 08-09-2021 Urea nitrogen [Mass/Vol] 24 mg/dL 7-18 [facility] Work Phone: Vital Signs Date Time Vital Sign Value Performing Clinician Faci lity 06-18-2022 13:58-0400 Body temperature 98.42 [degF] DR ERVIN SMYTH MD [facility] 06-18-2022 13:58-0400 Diastolic Blood Pressure Non-Invasive [address] ERVIN SMYTH MD [facility] 06-18-2022 13:58-0400 Heart rate 78 /min DR ERVIN SMYTH MD [facility] 06-18-2022 13:58-0400 Reason For Taking VItal Signs DR ERVIN SMYTH MD [facility] 06-18-2022 13:58-0400 Respiratory rate 18 /min DR ERVIN SMYTH MD [facility] 06-18-2022 13:58-0400 Systolic Blood Pressure Non-Invasive [address] ERVIN SMYTH MD [facility] 06-18-2022 12:51-0400 Body temperature 98.06 [degF] DR ERVIN SMYTH MD [facility] 06-18-2022 12:51-0400 Diastolic Blood Pressure Non-Invasive [address] ERVIN SMYTH MD [facility] 06-18-2022 12:51-0400 Heart rate 70 /min DR ERVIN SMYTH MD [facility] 06-18-2022 12:51-0400 Reason For Taking VItal Signs DR ERVIN SMYTH MD [facility] 06-18-2022 12:51-0400 Respiratory rate 18 /min DR ERVIN SMYTH MD [facility] 06-18-2022 12:51-0400 Systolic Blood Pressure Non-Invasive [address] ERVIN SMYTH MD [facility] 06-18-2022 06:10-0400 Body temperature 98.06 [degF] DR ERVIN SMYTH MD [facility] 06-18-2022 06:10-0400 Diastolic Blood Pressure Non-Invasive [address] ERVIN SMYTH MD [facility] 06-18-2022 06:10-0400 Heart rate 79 /min DR ERVIN SMYTH MD [facility] 06-18-2022 06:10-0400 Reason For Taking VItal Signs DR ERVIN SMYTH MD [facility] 06-18-2022 06:10-0400 Respiratory rate 18 /min DR ERVIN SMYTH MD [facility] 06-18-2022 06:10-0400 Systolic Blood Pressure Non-Invasive [address] ERVIN SMYTH MD [facility] 06-18-2022 04:15-0400 Heart rate 74 /min DR ERVIN SMYTH MD [facility] 06-17-2022 23:46-0400 Heart rate 78 /min DR ERVIN SMYTH MD [facility] 06-17-2022 19:42-0400 Heart rate 80 /min DR ERVIN SMYTH MD [facility] 06-17-2022 14:14-0400 Body height 170.[address] ERVIN SMYTH MD [facility] 06-17-2022 14:14-0400 Body weight 80.[address] ERVIN SMYTH MD [facility] 06-17-2022 14:14-0400 Body weight 27.79 kg/m2 DR ERVIN SMYTH MD [facility] 06-17-2022 13:07-0400 Body temperature 96.26 [degF] DR ERVIN SMYTH MD [facility] 06-17-2022 13:00-0400 Respiratory Rate - Anes 18 br/min DR ERVIN SMYTH MD [facility] 06-17-2022 12:55-0400 Respiratory Rate - Anes 16 br/min DR ERVIN SMYTH MD [facility] 06-17-2022 12:50-0400 Respiratory Rate - Anes 17 br/min DR ERVIN SMYTH MD [facility] 06-17-2022 11:35-0400 Body temperature 93.67 [degF] DR ERVIN SMYTH MD [facility] 06-17-2022 10:11-0400 Body height 170.[address] ERVIN SMYTH MD [facility] 06-17-2022 10:11-0400 Body temperature 98.6 [degF] DR ERVIN SMYTH MD [facility] 06-17-2022 10:11-0400 Body weight 80.[address] ERVIN SMYTH MD [facility] 06-02-2022 11:30-[address] ERVIN SMYTH MD [facility] 06-02-2022 11:30-[address] ERVIN Jarvis [facility] 06-02-2022 11:30-0400 Body height 170.[address] ERVIN SMYTH MD [facility] 06-02-2022 11:30-0400 Body weight 80.[address] ERVIN SMYTH MD [facility] 06-02-2022 11:30-0400 Body weight 27.79 kg/m2 DR ERVIN SMYTH MD [facility] 06-02-2022 11:30-0400 Diastolic Blood Pressure Non-Invasive [address] ERVIN SMYTH MD [facility] 06-02-2022 11:30-0400 Heart rate 64 /min DR ERVIN SMYTH MD [facility] 06-02-2022 11:30-0400 Respiratory rate 18 /min DR ERVIN SMYTH MD [facility] 06-02-2022 11:30-0400 Systolic Blood Pressure Non-Invasive [address] ERVIN SMYTH MD [facility] Encounters Encounter Date Encounter Type Care Provider Facility Start: 09-05-2024 End: 09-05-[address] Sourav Brown MD Work Phone: -Laboratory [facility] Start: 09-05-2024 End: 09-05-[address] Soruav Brown MD -Laboratory [facility] Start: 09-05-2024 End: 09-05-2024 ambulatory Sourav Brown Facility:[facility] Start: 01-05-2024 End: 01-05-2024 ambulatory Danish Plascencia Facility:[facility] Start: 01-15-2023 End: 01-15-2023 ambulatory [facility] Work Phone: Start: 01-15-2023 End: 01-15-2023 Patient encounter procedure [facility] Start: 01-13-2023 End: 01-13-2023 ambulatory [facility] Work Phone: Start: 01-13-2023 End: 01-13-2023 [facility] Start: 06-23-2022 End: 06-23-2022 ambulatory [facility] Work Phone: Start: 06-23-2022 End: 06-23-2022 Patient encounter procedure [facility] Start: 06-17-2022 End: 06-18-[address] ERVIN SMYTH MD Facility:[facility] Start: 06-17-2022 End: 06-18-[address] ERVIN SMYTH MD [facility] Start: 06-03-2022 End: 06-03-2022 ambulatory [facility] Work Phone: Start: 06-03-2022 End: 06-03-2022 Patient encounter procedure [facility] Start: 06-02-2022 End: 06-03-[address] ERVIN SMYTH MD Facility:[facility] Start: 06-02-2022 End: 06-03-[address] ERVIN SMYTH MD Facility:[facility] Start: 06-02-2022 End: 06-02-[address] ERVIN SMYTH MD [facility] Start: 06-02-2022 End: 06-02-[address] ERVIN SMYTH MD [facility] Start: 05-26-2022 End: 05-26-2022 ambulatory [facility] Work Phone: Start: 05-26-2022 End: 05-26-2022 Patient encounter procedure [facility] Start: 09-10-2021 End: 09-10-2021 [facility] Start: 08-09-2021 End: 08-09-2021 Patient encounter procedure [facility] Procedures Date Procedure Procedure Detail Performing Clinician Start: 09-05-2024 Urine microalbumin/creatinine ratio measurement Dr. Sourav Brown MD Work Phone: Start: 09-05-2024 Assay of prostate sp ecific antigen total Dr. Sourav Brown MD Work Phone: Comment on above: This test was perfor med using the [employer] tPSA method. Measured values of a patient sample can vary depending on the testing procedure used. PSA values determined on patient samples by different testing procedures cannot be used interchangeably. If there is a change in PSA assays while monitoring therapy, sequential testing should be performed to confirm baseline values. Start: 09-05-2024 Vitamin D, 25-hydrox y measurement Dr. Sourav Brown MD Work Phone: Comment on above: Vitamin D StatusDefi ciency: <20 ng/mL (50nmol/L)Insufficiency: 20-30 ng/mL (50-75 nmol/L)Sufficiency: 30-100 ng/mL (75-250 nmol/L)Toxicity: >100 ng/mL (>250 nmol/L) Start: 06-17-[address] ERVIN [...] Immunization Date Immunization Notes Care Provider Fa jessica 08-23-2020 SARS-CoV-2 mRNA (tozinameran) vaccine DR ERVIN SMYTH MD [facility] 05-27-2021 SARS-CoV-2 mRNA (tozinameran) vaccine DR ERVIN SMYTH MD [facility] 02-07-2016 zoster vaccine, live DR ASIA SMYTH MD [facility] 12-17-2015 pneumococcal polysaccharide vaccine, [address] ERVIN SMYTH MD [facility] 11-29-2015 influenza virus vacc ine, unspecified formulation DR ERVIN SMYTH MD [facility] 12-14-2014 influenza virus vacc ine, unspecified formulation DR ERVIN SMYTH MD [facility] 12-14-2014 pneumococcal conjuga te vaccine, [address] ERVIN SMYTH MD [facility] 01-03-2014 influenza virus vacc ine, unspecified formulation DR ERVIN SMYTH MD [facility] Payers Date Payer Category Payer Self-pay [id number] 2022 Medicare [id number] 2014 [employer] ( and others) [id number] 1950 Unknown [id number] 1950 Unknown [id number] 1950 Unknown [id number] Unknown [id number] Unknown [id number] Social History Date Type Detail Facility Start: 01-10-2013 End: 01-10-2013 Tobacco smoking status RIIS Unknown if ever smoked [facility] Start: 1950 Sex Assigned At Male [facility] Start: 06-02-2022 Tobacco smoking status Never s moked tobacco (finding) [facility] Functional Status Date Assessment Result Facility 06-18-2022 Functional Status Independent [facility] 06-18-2022 Functional Status Door open, Room check performed [facility] 06-18-2022 Functional Status Front wheeled walker [facility] 06-18-2022 Functional Status 2 [facility] 06-18-2022 Functional Status SCD Removed/Of f bilateral knee high [facility] 06-17-2022 Functional Status Demonstrates C orrect Call Light Use Yes [facility] 06-17-2022 Functional Status Dinner Percent 100 [facility] 06-17-2022 Functional Status [facility] 06-17-2022 Functional Status Single level home [facility] 06-17-2022 Functional Status None [facility] 06-17-2022 Functional Status Maintained [facility] Mental Status Date Assessment Result Facility 06-18-2022 Mental Status Oriented x 4 [facility] 06-18-2022 Mental Status [facility] 06-18-2022 Mental Status [facility] Clinical Notes 06-17-2022 to 06-18-2022 Note Date & Type Note Facility 06-18-2022 Note Discharge Instructions Thank you for allowing [facility] to assist you with your healthcare needs. The following is important discharge information regarding your hospital visit. Your Care Team Dr Smyth Your Diagnosis Osteoarthritis HTN (hypertension) GERD (gastroesophageal reflux disease) Leukocytosis Status post total right knee replacement What to do next Follow Up Appointments Follow Up with [facility] When 06/30/2022 10:30 AM EDT Why: This is your follow up appt with Dr Kobi Peters. Where: [facility] [address] [address]- [phone] Follow Up with [facility] When 06/20/2022 08:30 AM EDT Why: This is your first Physical Therapy appt. Where: [address] [address]- [phone] The Following Activity and Diet Have Been [...] to exceed 3000 mg/ day Pickup at [facility] #[id number] 06/18/22 at 0856am New docusate-senna (Senokot S 50 mg-8.6 mg oral tablet) 2 tab(s) by mouth Two (2) times a day Duration: 3 Days Take until first bowel movement, then as needed Pickup at [facility] #[id number] 06/18/22 at 0856am New oxyCODONE (oxyCODONE 5 mg oral tablet ( IMMEDIATE release )) See instructions Status post total right knee replacement 1-2 tab(s) Oral q4h Pickup at [facility] #[id number] 06/18/22 at 1pm Changed aspirin 81 Milligram [...] day none today Pharmacy Information [id number]: [address] [place], [place] [id number] [phone] Please take this list to your next doctor s visit. Bring all medications you take, including over the counter medications, herbals and other supplements with you to your doctor s visit. Patients and families are reminded to discard old lists and to update any records with all medication providers or retail pharmacies. Education Materials [facility] Post-operative Instructions PLEASE FOLLOW [facility] POST-OP INSTRUCTIONS GIVEN WATCH FOR SIGNS OF INFECTION: call the office ([phone]) if experencing any of the following: (Usually [...] on your follow up instructions. Form: 338A (03819) R: 07/06 Additional Information VACCINATE! IT SAVES LIVES! Members of the community who have not yet received the COVID-19 vaccine and would like to receive it can visit one of [facility] vaccine clinics. There are many vaccine clinic locations within the [facility]. For locations and available times, please visit [email or web address] [email or web address] It is important to note that some COVID mobile vaccine clinics are held outdoors and may be canceled in rainy or stormy conditions. To learn more about pediatric vaccinations (ages 5-11), we invite you to visit the [facility] webpage. [email or web address]/p [email or web address]-Iuapmrdriss-Freq nlfdoy-Vdoyq-[email or web address].html To learn more about the COVID-19 vaccine, we invite you to visit the CDC website for a list of frequently asked questions. https://www.cdc.gov/coronavirus/ 2019-ncov/vaccines/faq.html [facility] Patient Portal Access Instructions: Stay connected with your healthcare team and access your personal medical information anytime with the [facility] Patient Portal.If you would like a full copy of your medical records, please contact the [facility] Medical Records Department, Thursday through Thursday between 8a.m. and 4:30p.m. Please follow the directions below to access the portal: 1.Access the email account you provided upon registration to the [facility].2.Look for an invitation email from [facility].3.Open the email and access the invitation link: Accept Invitation to [facility]4.Fill in the required eduardo to create your account. Sign into [email or web address] with your username and password that you [...] you will allow to register on the [facility] Patient Portal for access to your information. You can also access the [facility] Patient Portal on the [facility] [facility]. Simply click on Health Records under Health Data and then click on the [facility] logo. HOW TO SAFELY DISPOSE OF PRESCRIPTION [...] Call your local pharmacy or go to http://[email or web address].iQiyi/[email or web address] to find one close to you.3.Make use of household items: Use cat litter or old coffee grounds to dispose medications if other options are not available. Mix your drugs with these household products, seal them in an airtight container and throw it into the garbage. Call [facility]: [phone] to be sure your drugs can be [...] a CHART COPY. Signatures Patient Education Materials [address] [place] [address] Post-op Instruction 09/2016 (42617) Medication Leaflets My discharge plan and instructions have been reviewed and explained to me and I,PRIMO REARDON understand my current condition and have read and understand these discharge instructions. I have received a written copy of the plan/instructions. If I have questions, I am aware that I should contact my doctor. Patient/Parking Worker Signature: Date/Time: Relationship to Patient: Witness Name/Signature: Date/Time: [facility] 06-18-2022 Note Date of Service 06/18/2022 Subjective [...] by ZEE MONTELONGO on 06/18/2022 10:12 AM [facility] 06-18-2022 [facility] e instructions Patient Education 06/18/2022 07:38:38 5 - [facility] Post-op Instruction 09/2016 (18562) [facility] Post-operative Instructions PLEASE FOLLOW [facility] POST-OP INSTRUCTIONS GIVEN WATCH FOR SIGNS OF INFECTION: call the office ([phone]) if experencing any of the following: (Usually [...] on your follow up instructions. Form: 338A (93150) R: 07/06 Follow Up Care 01/16/2022 12:51:29 With:[facility] Address: [address] [place] [phone]- [phone] When:06/30/2022 10:30:00 Comments:This is your follow up appt with Dr Kobi Peters. With:[facility] Address: [address] [place] [address] [id number]- [phone] When:06/20/2022 08:30:00 Comments:This is your first Physical Therapy appt. [facility] 06-18-2022 Note Date of Service June 18, [...] would like his prescriptions E scribed to [facility] in [facility]. Patient has been able to urinate on his own and if he has any complications postoperatively he is to contact his primary care physician. He states he has an appointment with his urologist for the first time in July 2022. He will contact her office with any concerns or questions postoperatively upon discharge. I have reviewed the [place] Automated Rx Reporting System (OARRS) report for [...] KOBI MATTHEWS PA-C on 06/18/2022 07:38 AM [facility] 06-17-2022 Note ORIGINAL EXAMINATION: POSTOPERATIVE KNEE TECHNIQUE: [...] Date: 06/17/2022 2:10:53 PM Ordering Provider: ERVIN [facility] 06-17-2022 Note ORIGINAL EXAMINATION: POSTOPERATIVE KNEE TECHNIQUE: [...] Date: 06/17/2022 2:10:53 PM Ordering Provider: ERVIN [facility] 06-17-2022 Anesthesiology Consult note Patient: PRIMO REARDON Age: 71 years Sex: Male : 1950 Associated Diagnoses: None Author: ALESSANDRO YU APRN-PATTERN STORAGE CLERK Preoperative Information Procedure/ Case: RA R TKA [...] Diabetes Mother Procedure history: Carpal tunnel release ([id number]). Comments: 06/02/2022 12:00 ALBERT Richardson JEN Colonoscopy ([id number]). Stent ([id number]). Comments: 06/02/2022 12:00 ALBERT Richardson LEFT EYE X2 Cataract surgery ([id number]). Comments: 06/02/2022 12:01 EDT - ALBERT Tucker Social History Social & Psychosocial Habits Alcohol [...] Weight Lbs 177.1 lb Weight Method Stated [place] Body Weight 66.12 kg Admission Body Mass [...] Weight Lbs 177.1 lb Weight Method Stated [place] Body Weight 66.12 kg Admission Body Mass [...] no difficulties Skin Temperature Warm Skin Description Tiburon Skin Integrity Intact IV Present Present Hand [...] Safety Brochure Information Reviewed Unable to complete [facility] Video Viewed No Teaching Evaluation No further teaching needed Patient's Current Physicians Patient's Current Physicians (Modified) Admission Note-Nursing Same Day Patient History (Modified) . Assessment and Plan [place] [employer] Anesthesiologists (ASA) physical status classification: Class II. Anesthetic Preoperative Plan Premedication: intravenous. Anesthetic technique: Regional, Spinal. Induction: intravenously. Maintenance airway: Mask. Regional: Spinal, Adductor Canal Block. Postoperative pain management: Per surgeon. Risks discussed: nausea, vomiting, headache, sore throat, dental injury, hypotension, allergic reaction, serious complications. Informed consent: signed by patient. Notes: HTN; Osteoarthritis; MYLES; CKD. Digitally Signed by ALESSANDRO YU APRN-PATTERN STORAGE CLERK on 06/17/2022 10:46 AM Digitally Signed by ALESSANDRO YU APRN-PATTERN STORAGE CLERK on 06/17/2022 10:46 AM [facility] Evaluation + Plan note Future Appointments [facility] Evaluation note No assessment inform ation available [facility] Work Phone: Hospital course Narrative No data available for this section [facility] Hospital Discharge instructions No data available for this section [facility] Progress note No data available for this section [facility] Reason for referral (narrative) No reason for referral information available [facility] Work Phone: Chief Complaint and Reason for Visit Chief Complaint NEED ORDER Chief Complaint NEED ORDER OSTEOARTHRITIS, HTN, GERD, POST TOTAL RIGHT KNEE Summary Purpose Family History No Family History Records FoundNo Family History Records Found Advance Directives No Advanced Directives Records FoundNo Advanced Directives Records Found Additional Source Comments Goals (unrecognized section and content) Goals may be documented in a n alternate sectionGoals may be documented in an alternate section No data available for this section No data available for this sectionGoals may be documented in an alternate section No data available for this sectionGoals may be documented in an alternate sectionGoals may be documented in an alternate sectionGoals may be documented in an alternate sectionGoals may be documented in an alternate section Care Teams (unrecognized sec tion and content) Team Status: Active Member Role Status Dates Dr. Sourav Brown MD Family Provider Active Dr. Sourav Brown MD Primary Care Provider Active Team Status: Inactive Member Role Status Dates Dr. Sourav Brown MD Primary Care Provider, Attending P rohosea Active Team Status: Inactive Member Role Status Dates Dr. Sourav Brown MD Primary Care Provider Active Kobi LOUISE PA-C Attending Provider Active Team Status: Inactive Member Role Status Dates Dr. Sourav Brown MD Primary Care Provider Active Kobi LOUISE PA-C Attending Provider, Referring Pr ovider Active Team Status: Inactive Member Role Status Dates Dr. Sourav Brown MD Primary Care Provider Active Dr. Danish Plascencia MD Attending Provider, Referr ing Provider Active Team Status: Active Member Role Status Dates Dr. Sourav Brown MD Primary Care Provider, Attending P rohosea Active Team Status: Active Member Role/Relationship Status Dates Dr. Sourav Brown MD Family Provider Active Dr. Sourav Brown MD Primary Care Provider Active Team Status: Inactive Member Role/Relationship Status Dates Dr. Sourav Brown MD Primary Care Provider Active Start: September 05, 2024 End: September 05, 2024 Dr. Sourav Brown MD Attending Provider Active St art: September 05, 2024 End: September 05, 2024 Dr. Sourav Brown MD Referring Provider Active St art: September 05, 2024 End: September 05, 2024 (unrecognized sect ion and content) No Status Records FoundNo Status Records Found INFORMATION SOURCE (unrecogn ized section and content) DATE CREATED AUTHOR 06/24/2022 [facility] DATE CREATED AUTHOR 'S DAVID ATION 09/12/2024 [facility] FOR RECORDS PERTAINING TO PATIENTS WHO ARE [...] BE BASED ON THE PRIMARY CLINICAL RECORDS. [employer] [facility]. provides no warranty or guarantee of the accuracy or completeness of information in this document.
[2024-10-28 16:26] LABS: CRP 21.00 mg/L (0.0-3.0)
== END | disposition home or self-care (01) ==
LOC: MFPLAB 15:02
PROVIDERS: PCP Family Medicine
DX: R10.9 Unspecified abdominal pain (principal)
CPT/HCPCS: 36415; 80053; 85025; 86140

== ENCOUNTER → 2025-01-05 | Outpatient (CLI) | payer MEDICARE, OTHER, SELFPAY ==
[2025-01-05 09:27] LABS: CRP < 3.00 mg/L (0.0-3.0)
[2025-01-05 10:03] LABS: PSA,Total- Diagnostic 2.77 ng/mL (0.00-4.00)
== END | disposition home or self-care (01) ==
LOC: LAB 08:18
PROVIDERS: PCP Family Medicine; Referring Provider Urology; Visit Provider Urology
DX: R97.20 Elevated prostate specific antigen [PSA] (principal)
CPT/HCPCS: 36415; 84153; 86140